=== PATIENT | male | born 1940 | race Caucasian/White ===

== ENCOUNTER 2019-06-27 17:13 | Inpatient (IN) ==
--- NOTE | 2019-06-27 18:13 | PROVIDER DOCUMENTATION ---
HPI-General Adult - General Chief Complaint: Altered Mental Status Stated Complaint: HALLUCINATION,CANCER Time Seen by Provider: 06/27/19 17:47 Source: patient Allergies/Adverse Reactions: Patient Allergies Allergy/AdvReac Type Severity Reaction Status Date / Time Penicillins Allergy Unknown shaking Verified 08/11/16 09:34 Home Medications: Home Medication List Medication Instructions Recorded Confirmed Last Taken Type Alprazolam [Alprazolam Xr] 0.5 mg PO 4XDAY PRN PRN 01/25/13 07/09/17 07/08/17 19:00 History Amiodarone HCl 200 mg PO DAILY 01/25/13 07/09/17 07/08/17 07:00 History Aspirin 81 mg PO DAILY 01/25/13 07/09/17 07/08/17 07:00 History Carvedilol 6.25 mg PO BID 01/25/13 07/09/17 07/08/17 19:00 History Esomeprazole [Nexium] 40 mg PO DAILY 01/25/13 07/09/17 07/08/17 07:00 History Furosemide [Lasix] 40 mg PO DAILY 01/25/13 07/09/17 07/08/17 07:00 History Pravastatin Sodium 20 mg PO QHS 01/25/13 07/09/17 07/08/17 19:00 History Ibrutinib [Imbruvica] 140 mg PO DAILY 08/09/16 07/09/17 07/08/17 19:00 History Eszopiclone 1 mg PO DAILY 07/09/17 07/09/17 07/08/17 19:00 History Gabapentin 300 mg PO DAILY 07/09/17 07/09/17 07/08/17 19:00 History Potassium Chloride E.r. [Klor-Con] 10 meq PO DAILY tablet 07/12/17 Unknown Rx - History of Present Illness -Gen Adult Nature of Presenting Problems: 78 yr old M hx of cancer with metastasis, presents with a several day hx of decreased appetite, as well as complaints of back pain, in addition to visual hallucinations. The pt is accompanied by family members, who report he has been seeing people who are not present, as well as complaining of back pain. Pt has lesions on his spine per recent CT, as well as recent news of lesions in the lung. He takes [place] at home, but has not had much relief with his pain medicine. Review of Systems - Adult - REVIEW OF SYSTEMS - ADULT ROS:: limited per condition (family provides the bulk of it) Constitutional: reports: no symptoms reported Eyes: reports: no symptoms reported Ears, Nose, Mouth & Throat: reports: no symptoms reported Cardiovascular: reports: no symptoms reported Respiratory: reports: no symptoms reported Gastrointestinal: reports: no symptoms reported Genitourinary: reports: no symptoms reported Musculoskeletal: reports: bone pain, back pain Integumentary: reports: no symptoms reported Neurological: reports: no symptoms reported Psychiatric: reports: other (reported hallucinations) Past History - Adult - PAST MEDICAL HISTORY-ADULT Review of Records: reports: Old Records Reviewed, Nursing Assessment Review Major Childhood Illnesses: reports: denies history Cardiovascular: reports: HTN, hyperlipidemia Respiratory: reports: denies history Gastrointestinal: reports: denies history Obstetrical/Gynecological: reports: denies history Genitourinary: reports: denies history Musculoskeletal: reports: denies history Neurological: reports: denies history Psychiatric: reports: anxiety, depression Endocrine/Immune: reports: Leukemia Other Conditions: reports: cataract/glaucoma, deaf/hard of hearing - PRIOR SURGERIES/PROCEDURES Surgical/Procedure History: reports: other (PAC placement, left ear sx) - PRIOR HOSPITALIZATIONS Prior Hospitalizations: reports: for other non-related - IMMUNIZATION STATUS Childhood Immunizations: See Nurse Assessment Flu Vaccine: See Nurse Assessment - FAMILY HISTORY Family History: reviewed, not pertinent - SOCIAL HISTORY Smoking: other (pt smokes though he will deny; family is unaware of how much because he hides the cigaettes) Physical Exam-General - PHYSICAL EXAM-ADULT Initial Vital Signs Reviewed: Yes - CONSTITUTIONAL General Appearance: alert, thin - EYES Eyes: PERRL/EOMI - HEAD, EARS, NOSE, MOUTH & THROAT HENMT: normocephalic/atraumatic, moist mucous membranes - RESPIRATORY Respiratory: lungs clear, normal breath sounds - CARDIOVASCULAR Cardiovascular: regular rate, rhythm - MUSCULOSKELETAL Back Exam: other (low back tenderness, paraspinal) - SKIN Integumentary: warm/dry - NEUROLOGIC Neurologic: other (UE strength 4/5). negative: facial droop - PSYCHIATRIC Psych/Mental Status: other (oriented to self, no place) Progress - PLAN OF CARE/RESULTS Progress/Plan/Lab Results: Vital Signs - 8 hr 06/27/19 17:25 Temperature 97.5 F L Pulse Rate 89 Respiratory Rate 17 Blood Pressure 149/72 O2 Sat by Pulse Oximetry 98 Orders Category Date Time Status CT HEAD W/O CONTRAST [CT] Stat Exams 06/27/19 18:[address] THORACIC SPINE W/O CONTRAST [CT] Stat Exams 06/27/19 18:11 Ordered CXR shows possible pneumonia, WBC also a little more elevated than usual; spoke with hospitalist who agrees to accept admission for additional management. Result Diagrams: 06/27/19 18:56 06/27/19 18:56 - EKG 1 Time of EKG reading by physician:: 18:48 EKG Read and Signed by:: Vika Pitts EKG Interpretation (*Must complete 3 of following elements*): Abnormal Rate: 69 Rhythm: sinus rhythm with 1st degree AV block [place]: normal QRS: RBB CA Interval: prolonged ST Wave: normal Prior EKG Comparison: unchanged from prior - XRAY 1 XRAY Study: Chest Impression: See EMR Report - CONSULTS/PCP/HOSPITALIST Notification #1 *Consult/PCP/Hospitalist*: Dr. Ramirez Time Discussed: 20:17 Consult Disposition: Admit Departure - Departure Date of Disposition Decision: 06/27/19 Time of Disposition Decision: 21:11 DIAGNOSIS: Pneumonia, Altered mental state Disposition: ADMITTED INPATIENT 09 Certified Medical Emergency: Emergent Condition: Fair Referrals and Follow-Ups: Pari Wilson MD [Primary Care Provider] - - Critical Care Note This patient required my direct & personal management of CC.: No Attestation - Physician/ ABIGAIL Attestation Patient care was provided by Advanced Practice Provider:: No The physician spent face to face time with patient:: Yes Advanced Practice Provider documentation review:: Supervising physician onsite and consulted in the evaluation and care of this patient. The physician did have a face to face encounter with the patient.
[2019-06-27] MEDS ORDERED: MORPHINE IV ONE (18:39)
[2019-06-27 19:08] LABS: BASO# 0.03 X1000 (0.0-0.2); BASO% 0.1 % (0.0-0.8); EOS# 0.03 X1000 (0.0-0.7); EOS% 0.1 % (0.0-10.0); HEMATOCRIT 49.9 % (42.0-52.0); HEMOGLOBIN 16.5 g/dL (14.0-18.0); LYMPH# 5.87 X1000 (1.2-3.4); LYMPH% 28.4 % (20.5-51.1); MCH 28.8 PG (27-31); MCHC 33.1 g/dL (33-37); MCV 87.2 FL (81-99); MONO# 1.28 X1000 (0.11-0.59); MONO% 6.2 % (1.7-9.3); MPV 11.1 FL (7.4-10.4); NEUT# 13.23 X1000 (1.4-6.5); NEUT% 64.2 % (42.2-75.2); PLT 168 X1000 (130-400); RBC 5.72 XMIL (4.7-6.1); RDW 15.6 % (11.5-14.5); WBC 20.64 X1000 (4.8-10.8)
--- NOTE | 2019-06-27 19:42 | Diag Imaging Result Doc PS360 ---
EXAM: CT HEAD W/O CONTRAST 06/27/2019 HISTORY: Altered Mental Status TECHNIQUE: This exam was performed using automated exposure control, adjustment of mA or kV according to patient size, and/or use of iterative reconstruction technique. COMMENT: There is mild generalized cerebral atrophy and enlargement of the ventricular system particularly the third and lateral ventricles. This appearance has not changed significantly since 07/09/2017. There is no evidence of mass effect, bleed, or abnormal extra-axial fluid collection. The visualized paranasal sinuses are clear. The calvarium is intact. IMPRESSION: No evidence of acute intracranial disease. Electronically signed by Marcellus Armstrong 06/27/2019 7:39 PM
--- NOTE | 2019-06-27 19:44 | Diag Imaging Result Doc PS360 ---
EXAM: CHEST-2 VIEWS 06/27/2019 HISTORY: altered mental status, weakness TECHNIQUE: AP and lateral chest COMMENT: There is a Port-A-Cath on the right with its tip in the right atrium. The inspiration is less optimal than on 07/09/2017. There is some opacity seen posteriorly probably on the left side on the lateral view which is not as well demonstrated on the AP view. IMPRESSION: Left lower lobe pneumonia. Electronically signed by Marcellus Armstrong 06/27/2019 7:42 PM
[2019-06-27 20:01] LABS: AGAP 16; ALB/GLOB RATIO 1.5; ALBUMIN 3.5 g/dL (3.5-5.0); ALKALINE PHOSPHATASE 175 U/L (32-122); BUN 25 mg/dL (8-22); CALCIUM 9.3 mg/dL (8.8-10.2); CHLORIDE 96 mmol/L (98-107); COSMO 280; CREATININE 0.9 mg/dL (0.7-1.2); ESTIMATED GFR > 60; GLUCOSE 96 mg/dL (70-104); GOT 25 U/L (10-34); GPT 15 U/L (10-44); MAGNESIUM 2.1 mg/dL (1.5-2.7); POTASSIUM 3.4 mmol/L (3.5-5.1); SODIUM 138 mmol/L (136-145); TCO2 26 mmol/L (25-35); TOTAL PROTEIN 5.9 g/dL (6.3-8.3)
[2019-06-27] MEDS ORDERED: KLOR-CON PO ONE (21:34)
--- NOTE | 2019-06-27 22:52 | HISTORY AND PHYSICAL ---
CHIEF COMPLAINT: Altered mental status and pain. HISTORY OF PRESENT ILLNESS: This is an unfortunate 78-year-old male with a history of CLL who was recently diagnosed with lung cancer with metastases around 2 weeks ago. He presents after having several days of decreased appetite, per the daughter at the bedside. He has also had complaints of a lot of back pain and visual hallucinations. Apparently, he has been seeing people and talking to them who are not present as well as, again, a lot of back pain. He does have lesions to the spine per recent CT. He was given [place] but has not had much relief with this. He has other past medical history that includes dementia, hyperlipidemia and depression. I believe he was supposed to go for radiation this last Sunday but was unable to. At any rate, he will be admitted for a left lower lobe pneumonia and treated for this as well as pain control. He will be placed on the medical floor close to the nursing station for further evaluation and treatment. PAST MEDICAL HISTORY: See HPI. PREVIOUS SURGICAL HISTORY: Left ear surgery, scalp lesion excision, Port-A-Cath placement on right chest. FAMILY HISTORY: Mother had cancer. However, the daughter was not able to tell me what type of cancer. SOCIAL HISTORY: He lives in a mobile home behind his daughter's house. Believe he continues to smoke. He had 50-plus pack years. No alcohol or illicit drugs. ALLERGIES: Penicillin. HOME MEDICATIONS: A list of home medications has not been reconciled. An order was placed for Nursing to reconcile home medications. REVIEW OF SYSTEMS: Fourteen-point review of systems was attempted. The patient is very hard of hearing and he is oriented only to person. He does complain of having back pain but he denies any other complaint. The family has not told him that he has cancer. Other pertinent positives are listed above in the HPI. PHYSICAL EXAMINATION: VITAL SIGNS: Temperature 97.5, pulse 89, respirations 17, blood pressure 149/72, oxygen saturation 98% on room air. GENERAL: Pleasantly confused 78-year-old male, chronically ill appearing, lying in the ER stretcher, oriented only to person, very hard of hearing. HEENT: Head is atraumatic, normocephalic. Pupils equal, round, reactive to light. Extraocular eye movement is intact. Sclerae are anicteric. Conjunctiva is pink. Oral mucosa is dry. NECK: Supple. No JVD. No thyromegaly. Trachea is midline. CARDIAC: S1, S2 appreciated. No murmurs, gallops, rubs. LUNGS: Clear to auscultation bilaterally. No rhonchi, wheezes or rales. Decreased bilateral bases. ABDOMEN: Soft, nondistended, nontender. Bowel sounds present all 4 quadrants, normoactive. No pulsatile mass. No organomegaly. EXTREMITIES: No clubbing, cyanosis or edema. Two-plus pedal pulses. MUSCULOSKELETAL: 3/5 strength upper and lower extremities. All range of motion seems to be decreased. NEUROLOGICAL: Oriented to person. Does follow commands. Very hard of hearing. No focal motor deficits are noted. Cranial nerves 2 through 12 appear to be grossly intact. SKIN: Appears to be warm, dry and intact. DIAGNOSTIC DATA: Chest x-ray shows a left lower lobe infiltrate. CT of the head: No evidence of acute intracranial process. LABORATORY DATA: WBC 20.64. Hemoglobin 16.5. Hematocrit 49.9. Platelet count 168. Sodium 138. Potassium 3.4. Chloride 96. Carbon dioxide 26. BUN 25. Creatinine 0.9. Glucose 96. ASSESSMENT AND PLAN: 1. Left lower lobe pneumonia. We will give Levaquin and Rocephin. Blood cultures and sputum cultures are pending. 2. 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 We will consult Dr. Kristina Adkins. We will give morphine as needed for pain, Zofran as needed for nausea. I do not believe code status has been gone over with the patient. Again, he was altered tonight. We will defer this to the primary team and Oncology. However, I do think this would be a worthwhile conversation to have. 3. Leukocytosis. Patient has CLL with chronic leukocytosis. This is as noted chronically elevated. 4. Hypokalemia. We will treat and recheck. We will resume patient's home medications once they have been reconciled. Nursing was working with the daughter to try to get a list of home medications. Further recommendations per patient clinical course. Dictated by ROBERTO Snyder for Curtis Ramirez MD I have performed a face to face diagnostic evaluation. Labs/ Xrays- reviewed. Exam- Chest- rales, CV- regular. A/P- Pneumonia- Admit, check blood cultures, IV ABX. Dr. Ramirez. cc: ROBERTO Snyder MD MTDD
[2019-06-28 00:36] LABS: URINE SOURCE CATH
[2019-06-28 00:49] LABS: BILIRUBIN URINE NEGATIVE (NEGATIVE); BLOOD URINE MODERATE (NEGATIVE); COLOR YELLOW; GLUCOSE URINE NEGATIVE (NEGATIVE); KETONE URINE 20 mg/dL (NEGATIVE); LEUKOCYTES URINE TRACE (NEGATIVE); NITRITE URINE POSITIVE (NEGATIVE); PROTEIN URINE 30 mg/dL (NEGATIVE); SP GRAVITY URINE 1.026; TURBIDITY URINE CLEAR (CLEAR); UROBILINOGEN URINE NORMAL (NORMAL)
[2019-06-28 00:50] LABS: UR EPITHELIAL CELLS <10 /HPF (<10); URINE BACTERIA NEGATIVE /HPF; URINE WBC <10 /HPF (<10)
[2019-06-28] MEDS: NS 1,000 ML IV SCH ×2 (00:53→15:06)
[2019-06-28] MEDS: ROCEPHIN 1 GM in NS 50 ML IV SCH ×2 (00:56→23:16)
[2019-06-28] MEDS: MORPHINE IV PRN ×5 (00:57→23:16)
[2019-06-28] MEDS: DUONEB (A & A) INH SCH ×5 (02:07→21:40)
[2019-06-28] MEDS: LEVAQUIN 750 MG/D5W 750 MG/150 ML IVPB IV SCH (03:18)
[2019-06-28 07:27] LABS: BASO# 0.02 X1000 (0.0-0.2); BASO% 0.1 % (0.0-0.8); EOS# 0.03 X1000 (0.0-0.7); EOS% 0.2 % (0.0-10.0); HEMATOCRIT 47.3 % (42.0-52.0); HEMOGLOBIN 15.4 g/dL (14.0-18.0); IMM GRAN# 0.21 X1000 (0.0-0.04); IMM GRAN% 1.2 % (0.0-0.5); LYMPH# 4.94 X1000 (1.2-3.4); LYMPH% 27.4 % (20.5-51.1); MCH 28.7 PG (27-31); MCHC 32.6 g/dL (33-37); MCV 88.1 FL (81-99); MONO# 1.33 X1000 (0.11-0.59); MONO% 7.4 % (1.7-9.3); MPV 11.6 FL (7.4-10.4); NEUT# 11.47 X1000 (1.4-6.5); NEUT% 63.7 % (42.2-75.2); PLT 152 X1000 (130-400); RBC 5.37 XMIL (4.7-6.1); RDW 15.6 % (11.5-14.5)
[2019-06-28 07:52] LABS: AGAP 12; BUN 19 mg/dL (8-22); CALCIUM 8.3 mg/dL (8.8-10.2); CHLORIDE 102 mmol/L (98-107); COSMO 281; CREATININE 0.7 mg/dL (0.7-1.2); ESTIMATED GFR > 60; GLUCOSE 80 mg/dL (70-104); SODIUM 140 mmol/L (136-145); TCO2 26 mmol/L (25-35)
[2019-06-28] MEDS: LOVENOX SUBQ SCH (08:21)
--- NOTE | 2019-06-28 12:19 | PROGRESS NOTE ---
DATE: 06/28/2019 SUBJECTIVE: Patient notes that he is feeling better. States he is still having some coughing, congestion, and some occasional shortness of breath. Denies any fevers. PHYSICAL EXAMINATION: Vital Signs: Temperature 97.6, pulse 72, respiratory rate 18, and BP 138/62. General: Patient is in no current respiratory distress. HEENT: Normocephalic. Neck: Supple. Cardiovascular: Regular rate. Chest: Clear. Abdomen: Soft. Extremities: Moves all extremities. ASSESSMENT: 1. Leukocytosis. White count is slightly improved down from 20 to 18. 2. Hypokalemia. 3. Recently diagnosed with lung cancer with metastases. PLAN: We will continue patient in the hospital. Currently on Levaquin and Rocephin. Continue to follow. Breathing treatments, oxygen and antibiotics. cc: Dionicio Lazo MD
[2019-06-28] MEDS ORDERED: LANOXIN IV ONE (20:04)
[2019-06-28] MEDS ORDERED: LOPRESSOR IV ONE (20:04)
[2019-06-29] MEDS: LEVAQUIN 750 MG/D5W 750 MG/150 ML IVPB IV SCH (02:24)
[2019-06-29] MEDS: DUONEB (A & A) INH SCH ×4 (03:12→21:19)
[2019-06-29] MEDS: MORPHINE IV PRN ×3 (04:47→16:52)
[2019-06-29] MEDS: NS 1,000 ML IV SCH ×3 (04:47→18:16)
--- NOTE | 2019-06-29 05:12 | EKG Report ---
Test Performed on : 06/28/2019 7:28:37 PM Test Reason : a fib Blood Pressure : / mmHG Vent. Rate : 115 BPM Atrial Rate : 267 BPM P-R Int : 000 ms QRS Dur : 112 ms QT Int : 346 ms P-R-T Axes : 000 -73 065 degrees QTc Int : 478 ms Atrial fibrillation. with rapid ventricular response. Right bundle branch block Left anterior fascicular block Bifascicular block Abnormal ECG When compared with ECG of 27-JUN-2019 18:47, (Unconfirmed) Atrial fibrillation. has replaced Sinus rhythm. Vent. rate has increased BY 46 BPM Non-specific change in ST segment in Anterior leads Confirmed by Yaakov GARCÍA, Moises Skaggs ([id number]) on 06/29/2019 7:27:06 AM
[2019-06-29] MEDS ORDERED: LANOXIN IV ONE (08:39)
[2019-06-29] MEDS ORDERED: LOPRESSOR IV ONE (08:40)
[2019-06-29] MEDS: LOVENOX SUBQ SCH (09:06)
[2019-06-29] MEDS: LANOXIN PO SCH (09:06)
--- NOTE | 2019-06-29 10:08 | PROGRESS NOTE ---
DATE: 06/29/2019 SUBJECTIVE: Mr. Hobbs was eating breakfast, seemed to be comfortable, no complaints. He is a patient of Dr. Wilson. He presented on 06/27/2019 with altered mental status. A 78-year-old with history of CLL, who was recently diagnosed with lung cancer, metastatic, around 2 weeks ago. He presents after having several days of decreased appetite. Per his daughter at the bedside, he also had complaints of back pain and visual hallucinations. Apparently, he has been seeing people and talking to them. He has had a lot of back pain. He does have some lesions on the spine per recent CT scan, suspect metastatic disease. He was given some [place], but had not had much relief. He has a history of dementia, hyperlipidemia, depression, and I think he was supposed to go for radiation last Sunday, but unable to go, so admitting him. We found a left lower lobe pneumonia, and admitted to the hospital. He feels better, he says, this morning. He is oriented to person. When reminded, he is in the hospital, he is aware. Otherwise, I do not think he is oriented to time and place. OBJECTIVE: Vital Signs: Temperature 98.2 degrees, pulse 80, respirations 22, blood pressure 141/76. HEENT: Pupils are equal and round. Lungs: Clear in all lung childress. Cardiovascular: Regular rhythm and rate without murmur or S3. ASSESSMENT AND PLAN: 1. Leukocytosis, which is improved. 2. Treating him for pneumonia. He has history of recently diagnosed lung cancer. 3. Recent diagnosis of lung cancer and appears to have metastatic lesions to the spine. I think they were planning on beginning some radiation treatment. His oncologist is Dr. Adkins, I believe. REVIEW OF ORDERS: We have on Levaquin 750 mg IV every 24 hours, ceftriaxone 1 gram every 24 hours. He did have some episodes of atrial fibrillation through the night and also this morning, so last night he got a dose of digoxin 250 mcg IV, and then 5 of metoprolol, and repeated that this morning. He appears comfortable. I suspect he has underlying history of paroxysmal atrial fibrillation. His white count had gone down to 18,000 from 20,000. We will repeat his white count and electrolytes again in the morning. cc: Donny Samson MD
[2019-06-29] MEDS: TYLENOL PO PRN (20:26)
[2019-06-29] MEDS: ROCEPHIN 1 GM in NS 50 ML IV SCH (23:56)
[2019-06-30] MEDS: LEVAQUIN 750 MG/D5W 750 MG/150 ML IVPB IV SCH (02:27)
[2019-06-30] MEDS: DUONEB (A & A) INH SCH ×4 (03:10→22:55)
[2019-06-30] MEDS: NS 1,000 ML IV SCH ×2 (04:51→17:50)
[2019-06-30] MEDS: MORPHINE IV PRN ×3 (04:51→14:20)
[2019-06-30 07:29] LABS: BASO# 0.02 X1000 (0.0-0.2); BASO% 0.1 % (0.0-0.8); EOS# 0.07 X1000 (0.0-0.7); EOS% 0.5 % (0.0-10.0); HEMATOCRIT 43.9 % (42.0-52.0); HEMOGLOBIN 14.6 g/dL (14.0-18.0); IMM GRAN# 0.45 X1000 (0.0-0.04); IMM GRAN% 3.1 % (0.0-0.5); LYMPH# 4.36 X1000 (1.2-3.4); LYMPH% 30.4 % (20.5-51.1); MCHC 33.3 g/dL (33-37); MCV 87.3 FL (81-99); MONO# 1.01 X1000 (0.11-0.59); MPV 11.6 FL (7.4-10.4); NEUT# 8.43 X1000 (1.4-6.5); NEUT% 58.9 % (42.2-75.2); PLT 151 X1000 (130-400); RBC 5.03 XMIL (4.7-6.1); RDW 15.2 % (11.5-14.5); WBC 14.34 X1000 (4.8-10.8)
[2019-06-30 07:52] LABS: AGAP 14; ALB/GLOB RATIO 1.1; ALBUMIN 2.6 g/dL (3.5-5.0); ALKALINE PHOSPHATASE 128 U/L (32-122); BUN 9 mg/dL (8-22); CALCIUM 7.5 mg/dL (8.8-10.2); CHLORIDE 100 mmol/L (98-107); COSMO 276; CREATININE 0.7 mg/dL (0.7-1.2); ESTIMATED GFR > 60; GLUCOSE 87 mg/dL (70-104); GOT 19 U/L (10-34); GPT 12 U/L (10-44); MAGNESIUM 1.6 mg/dL (1.5-2.7); POTASSIUM 3.1 mmol/L (3.5-5.1); SODIUM 139 mmol/L (136-145); TCO2 25 mmol/L (25-35); TOTAL BILIRUBIN 0.66 mg/dL (0.20-1.00); TOTAL PROTEIN 4.9 g/dL (6.3-8.3)
--- NOTE | 2019-06-30 08:10 | EKG Report ---
Test Performed on : 06/27/2019 6:47:10 PM Test Reason : ED. NO EKG ORDER FOR MUSE Blood Pressure : / mmHG Vent. Rate : 069 BPM Atrial Rate : 069 BPM P-R Int : 260 ms QRS Dur : 112 ms QT Int : 432 ms P-R-T Axes : 061 -71 045 degrees QTc Int : 462 ms Sinus rhythm. with 1st degree AV block. Right bundle branch block Left anterior fascicular block Bifascicular block Septal infarct , age undetermined Abnormal ECG When compared with ECG of 09-JUL-2017 10:52, No significant change was found Unconfirmed Result
--- NOTE | 2019-06-30 08:45 | Diag Imaging Result Doc PS360 ---
CHEST-PORTABLE - 06/30/2019 INDICATION: pneumonia COMPARISON: 06/27/2019 FINDINGS: Stable right chest port in good position. There is some worsening infiltrate or atelectasis in the left lower lobe. There is some pulmonary vascular congestion and perhaps some interstitial pulmonary edema with indistinctness of the vascularity. No pneumothorax or large pleural effusion. Heart size is top normal. IMPRESSION: Worsening left lower lobe infiltrate or atelectasis. Faint bilateral infiltrates which may suggest interstitial pulmonary edema. Electronically signed by Freddy Chu 06/30/2019 8:42 AM
[2019-06-30] MEDS: LOVENOX SUBQ SCH (08:46)
[2019-06-30] MEDS: LANOXIN PO SCH (08:46)
[2019-06-30] MEDS: TYLENOL PO PRN (14:28)
[2019-06-30] MEDS: MIRALAX PO SCH (16:10)
--- NOTE | 2019-06-30 17:27 | PROGRESS NOTE ---
DATE: 06/30/2019 SUBJECTIVE: Mr. Hobbs says that he just does not have much appetite, not eating much. His breathing he thinks is a little better. He is very weak. He wants to still try and go home. He wants to try and get home health. OBJECTIVE: Vital signs: Temp is 97.7 degrees, pulse 89, respirations 16, blood pressure 150/74. HEENT: Pupils are equal and round. Lungs: Clear in all lung childress. Cardiovascular: Regular rhythm and rate without murmur or S3. Abdomen: Soft. Skin: Warm, dry. IMAGING: Chest x-ray from this morning, worsening left lower lobe infiltrate and atelectasis and bilateral infiltrates; they suggest interstitial pulmonary edema. ASSESSMENT AND PLAN: 1. Leukocytosis. White count has come down to 14,000, that is encouraging. X-ray looks a little worse, but clinically he seems to be doing a little better. 2. Treating him for pneumonia. He has underlying lung cancer with metastatic lesions to the spine. He is planning on beginning some radiation treatment. 3. Nutrition. His p.o. intake is poor. Encouraging p.o. intake. 4. In looking at his orders. He is on Levaquin 750 mg IV daily, normal saline at 70 mL an hour, MiraLAX 17 g daily, ceftriaxone 1 g IV q.24 hours, digoxin 250 mcg, I think we are giving that p.o. daily. So, we are trying to increase his p.o. intake. Discussed with Dr. Adkins what the plan of treatment would be. LABS: Review of his labs from today. White count 14,340, hematocrit is 43, platelet count 151,000. Electrolytes look good. Sodium 139, potassium 3.1, chloride 100, BUN 9, creatinine 0.7. I am going to put him on a daily potassium and see if that will help. I will give him liquid so he can swallow good. cc: Donny Samson MD
--- NOTE | 2019-06-30 19:47 | HEMO/ONC CONSULTATION ---
DATE: 06/30/2019 CONSULTATION REQUESTED BY: Hospitalist service. CONSULTATION IS FOR: CLL/metastatic lung cancer, patient known. HISTORY OF PRESENT ILLNESS: Mr. Hobbs is a 78-year-old male who is known to us as we have been treating him for several years now for CLL who was recently diagnosed with metastatic lung cancer about 2 weeks ago. He has presented to [facility] complaining of increased cough with shortness of breath. He also had decreased appetite and lots of back pain. Of note, the patient does have compression fractures and bony metastasis to the spine. We have set the patient up to have palliative radiation therapy with Dr. Killian as an outpatient. He was worked up in the hospital and found to have left lower lobe pneumonia. He is now receiving IV antibiotics. The patient reports that he is feeling better at this time. PAST SURGICAL HISTORY: 1. Left ear surgery. 2. Scalp lesion excision for previous skin cancer. 3. Port-A-Cath placement. PAST MEDICAL HISTORY: 1. CLL, most recently on Imbruvica and well managed. 2. Is newly diagnosed metastatic lung cancer. Patient is not a candidate for treatment. We have recommended hospice. 3. Compression fractures related to lytic lesions from his lung cancer. We have set the patient up to receive palliative radiation therapy. 4. Anxiety, depression. 5. Insomnia. SOCIAL HISTORY: The patient lives in a mobile home behind his daughter's house. Daughter is involved and brings him every appointment. He continues to smoke. He denies any alcohol or illicit drug use. FAMILY HISTORY: His mother did have a unknown cancer. Otherwise no other family history of cancer. REVIEW OF SYSTEMS: Twelve point review of system has been completed negative except for expressed in HPI. PHYSICAL EXAMINATION: Vital Signs: Temperature 97.7 degrees, heart rate 89, respirations 16, blood pressure 150/74, O2 saturation 99% on room air. General: This is an elderly male lying in hospital bed. There is no one at bedside. He is extremely hard of hearing. HEENT: Head normocephalic, atraumatic. He has glasses in place. Pupils equal, round, reactive. Mucosa is normal. Cardiovascular: S1, S2 heard. Respiratory: Chest clear, normal respiratory effort. Gastrointestinal: Abdomen soft, positive bowel sounds. Musculoskeletal: No bony abnormalities. Skin: No rash. Neurologic: Patient is alert. LABS AND STUDIES: White blood cells are 14.34 today, hemoglobin 14.6, platelet count 151,000, sodium 139, potassium 3.1, chloride 100, CO2 25, BUN 9, creatinine 0.7, glucose 87. ASSESSMENT/PLAN: 1. Chronic lymphocytic leukemia. Most recently he was on Imbruvica. That is currently being held. White count overall stable at this time. Continue to hold Imbruvica. 2. Recently diagnosed metastatic lung cancer with metastasis to the bone. We have not recommended treatment. This patient is not a candidate for chemotherapy or radiation for his lung cancer. We have recommended hospice previously. We again recommend hospice at this time. 3. Bony metastasis to the spine causing increased pain. Patient is a candidate possibly for palliative radiation to the spine. He was seeing Dr. Killian to hopefully get this arranged. Continue current pain regimen while he is in the hospital. 4. Pneumonia. Continue current IV antibiotics per the primary team. Patient reports that he started to feel better at this time. Thank you for consulting us on Mr. Hobbs while he is here at [facility]. We will continue follow along adjust our treatment plan per his hospital course. Dictated by MIGUEL London for Kristina Adkins MD cc: Kristina Adkins MD I have seen and examined the patient and the above note reflects my history, physical, assessment and plan. Kristina BINGHAM
[2019-06-30] MEDS: KLOR-CON PO SCH (22:48)
[2019-07-01] MEDS: ROCEPHIN 1 GM in NS 50 ML IV SCH (00:43)
[2019-07-01] MEDS: TYLENOL PO PRN ×2 (02:16→21:50)
[2019-07-01] MEDS: LEVAQUIN 750 MG/D5W 750 MG/150 ML IVPB IV SCH (02:16)
[2019-07-01] MEDS: DUONEB (A & A) INH SCH ×4 (03:44→22:07)
--- NOTE | 2019-07-01 07:21 | Diag Imaging Result Doc PS360 ---
EXAM: FLAT/UPRIGHT ABD/1 VIEW CHEST 07/01/2019 HISTORY: constipation/pneumonia TECHNIQUE: AP portable at 0659 COMMENT: There is hazy interstitial opacity bilaterally particularly in the right lower lobe. The heart size and pulmonary vascularity appear to be within normal limits. There may be small pleural effusions bilaterally. Compared to 06/30/2019 the obscuration of the hemidiaphragms is somewhat worse but otherwise are has been no appreciable change. IMPRESSION: Pulmonary edema and small pleural effusions. Electronically signed by Marcellus Armstrong 07/01/2019 7:19 AM
[2019-07-01 07:55] LABS: BASO# 0.03 X1000 (0.0-0.2); BASO% 0.2 % (0.0-0.8); EOS# 0.15 X1000 (0.0-0.7); HEMOGLOBIN 15.4 g/dL (14.0-18.0); IMM GRAN# 0.58 X1000 (0.0-0.04); LYMPH# 4.04 X1000 (1.2-3.4); LYMPH% 27.9 % (20.5-51.1); MCH 28.9 PG (27-31); MCHC 33.5 g/dL (33-37); MCV 86.3 FL (81-99); MONO# 0.93 X1000 (0.11-0.59); MONO% 6.4 % (1.7-9.3); MPV 10.8 FL (7.4-10.4); NEUT# 8.76 X1000 (1.4-6.5); NEUT% 60.5 % (42.2-75.2); PLT 166 X1000 (130-400); RBC 5.33 XMIL (4.7-6.1); RDW 15.3 % (11.5-14.5); WBC 14.49 X1000 (4.8-10.8)
[2019-07-01 08:36] LABS: LARGE PLATELETS 2+; LYMPHS 8 % (21-51); MONO 8 % (1-9); SEGS 74 % (42-75)
[2019-07-01 09:00] LABS: AGAP 15; ALBUMIN 2.9 g/dL (3.5-5.0); BUN 10 mg/dL (8-22); CALCIUM 8.5 mg/dL (8.8-10.2); CHLORIDE 97 mmol/L (98-107); COSMO 269; CREATININE 0.7 mg/dL (0.7-1.2); ESTIMATED GFR > 60; GLUCOSE 94 mg/dL (70-104); MAGNESIUM 1.6 mg/dL (1.5-2.7); PHOSPHORUS 2.7 mg/dL (2.7-4.5); POTASSIUM 3.1 mmol/L (3.5-5.1); SODIUM 135 mmol/L (136-145); TCO2 23 mmol/L (25-35)
[2019-07-01] MEDS: KLOR-CON PO SCH (09:22)
[2019-07-01] MEDS: LOVENOX SUBQ SCH (09:22)
[2019-07-01] MEDS: LANOXIN PO SCH (09:22)
[2019-07-01] MEDS: MIRALAX PO SCH (09:22)
[2019-07-01] MEDS: COLACE PO SCH ×2 (09:25→21:48)
[2019-07-01] MEDS: NS 1,000 ML IV SCH (09:25)
--- NOTE | 2019-07-01 14:04 | INFECTIOUS DISEASE CONSULT REP ---
DATE: 07/01/2019 CONCLUSION: Patient has a left lower lobe pneumonia which is increasing in size. PRESENT ILLNESS: The patient was unable provide a history. The patient recently had been diagnosed with lung cancer with metastatic disease. He started having anorexia, increased back pain and visual hallucinations. RECOMMENDATIONS: I have discontinued Rocephin and Levaquin and I placed the patient on a combination of Zyvox and cefepime. DISCUSSION: The patient is extremely hard of hearing and he was unable to give me a history and I was unable to do a review of systems with it. PAST SURGICAL HISTORY: The patient has had left ear surgery, excision of lesions on his scalp, and placement of a right Port-A-Cath. PREVIOUS MEDICAL HISTORY: Positive for lung cancer with metastatic disease, chronic lymphocytic leukemia, and chronic obstructive pulmonary disease. The patient also is a cigarette smoker. Hyperlipidemia and gastroesophageal reflux disease. FAMILY HISTORY: Positive for cancer. SOCIAL HISTORY: The patient lives in a mobile home with his daughter. He smokes cigarettes. He does not drink alcoholic beverages or abuse drugs. ALLERGIES: The patient is allergic to penicillin. The reaction was shaking. HOME MEDICATIONS: Include alprazolam, amiodarone, carvedilol, Nexium, furosemide, gabapentin, Imbruvica, and pravastatin. STUDIES: The patient's studies thus far show a CBC with a white count of 14,490, hemoglobin 15.4 and platelet count 166,000. The patient's blood cultures are pending. Creatinine is 0.7. GFR is greater than 60. Chest x-ray shows an increasing left lower lobe pneumonia. CT scan of the head shows no acute disease. Thank you for the consult. cc: [facility]
[2019-07-01] MEDS ORDERED: MAGNESIUM SULFATE 2 GM/S.W.I. 2 GM/50 ML IVPB IV ONE (14:20)
[2019-07-01] MEDS ORDERED: KLOR-CON PO ONE (14:20)
[2019-07-01] MEDS: MAXIPIME 1 GM in NS 50 ML IV SCH ×2 (15:00→21:47)
[2019-07-01] MEDS: ZYVOX PO SCH (17:06)
--- NOTE | 2019-07-01 22:16 | PROGRESS NOTE ---
DATE: 07/01/2019 SUBJECTIVE: The patient is resting comfortably in bed. He is very hard of hearing. His family is present at the bedside. He complains of back pain whenever he moves. OBJECTIVE: Vital Signs: Temperature 97.6 degrees, blood pressure 147/62, heart rate 80, respirations 18, O2 saturation 97% on room air. General: This is a thin, emaciated male lying in bed in no acute distress. Heart: S1, S2 normal. Tachycardic. Lungs: Equal air entry bilaterally. No wheezing. No rales. Abdomen: Positive bowel sounds. Soft, nontender, nondistended. Extremities: No edema. No cyanosis. Neurologic: The patient is alert, but confused. LABS: White blood cell count 14, hemoglobin 15, hematocrit 46, platelets 166,000. Sodium 135, potassium 3.1, chloride 97, CO2 23, magnesium 1.6. ASSESSMENT AND PLAN: 1. Pneumonia. The patient is on broad-spectrum antibiotics and bronchodilator therapy. We will continue to monitor closely. 2. Metastatic lung cancer. Aware. The patient is not a candidate for chemotherapy as per the oncologist. We will consult with Palliative Care to assist with goals of care. 3. Chronic lymphocytic leukemia. Aware. 4. Constipation. We will start the patient on laxative therapy. 5. Hypokalemia. We will replace the patient's potassium. 6. Hypomagnesemia. Will replace the patient's magnesium. 7. Severe protein-calorie malnutrition. We will continue with Ensure with each meal and will also add Marinol. DISPOSITION: Given the patient's terminal diagnosis, we will consult with Palliative Care to assist with goals of care. cc: Bettina Barton MD [facility]
[2019-07-02] MEDS: NS 1,000 ML IV SCH ×2 (00:25→18:05)
[2019-07-02] MEDS: MS CONTIN PO SCH ×3 (00:25→21:07)
[2019-07-02] MEDS: MORPHINE IV PRN (04:33)
[2019-07-02] MEDS: DUONEB (A & A) INH SCH ×4 (04:39→21:15)
[2019-07-02] MEDS: MAXIPIME 1 GM in NS 50 ML IV SCH ×2 (05:35→14:37)
[2019-07-02] MEDS: ZYVOX PO SCH ×2 (05:36→18:05)
[2019-07-02 07:25] LABS: BASO# 0.03 X1000 (0.0-0.2); BASO% 0.2 % (0.0-0.8); EOS# 0.09 X1000 (0.0-0.7); EOS% 0.6 % (0.0-10.0); HEMATOCRIT 43.7 % (42.0-52.0); HEMOGLOBIN 14.4 g/dL (14.0-18.0); IMM GRAN# 0.57 X1000 (0.0-0.04); IMM GRAN% 3.6 % (0.0-0.5); LYMPH# 4.45 X1000 (1.2-3.4); LYMPH% 28.4 % (20.5-51.1); MCH 28.5 PG (27-31); MCV 86.4 FL (81-99); MPV 11.2 FL (7.4-10.4); NEUT# 9.45 X1000 (1.4-6.5); NEUT% 60.2 % (42.2-75.2); PLT 156 X1000 (130-400); RBC 5.06 XMIL (4.7-6.1); RDW 15.4 % (11.5-14.5); WBC 15.69 X1000 (4.8-10.8)
[2019-07-02 08:01] LABS: AGAP 12; ALBUMIN 2.6 g/dL (3.5-5.0); BUN 12 mg/dL (8-22); CALCIUM 7.5 mg/dL (8.8-10.2); CHLORIDE 103 mmol/L (98-107); COSMO 277; CREATININE 0.7 mg/dL (0.7-1.2); ESTIMATED GFR > 60; GLUCOSE 98 mg/dL (70-104); PHOSPHORUS 2.9 mg/dL (2.7-4.5); POTASSIUM 3.4 mmol/L (3.5-5.1); SODIUM 139 mmol/L (136-145); TCO2 24 mmol/L (25-35)
[2019-07-02] MEDS: LANOXIN PO SCH (09:15)
[2019-07-02] MEDS: COLACE PO SCH ×2 (09:15→21:09)
[2019-07-02] MEDS: MARINOL PO SCH (09:16)
[2019-07-02] MEDS: MIRALAX PO SCH (09:16)
[2019-07-02] MEDS: LOVENOX SUBQ SCH (09:16)
[2019-07-02] MEDS ORDERED: GAMUNEX-C 10% IV SCH (14:30)
[2019-07-02] MEDS: KLOR-CON PO ONE ×2 (14:40→15:50)
--- NOTE | 2019-07-02 14:50 | INFECTIOUS DISEASE PROGRESS NO ---
DATE: 07/02/2019 PRESENT ILLNESS: Mr. Hobbs is being treated for pneumonia. There is also an underlying CLL with an associated immunoglobulin deficiency. MEDICATIONS: Yesterday he was started on Zyvox 600 mg by mouth every 12 hours and cefepime 1 g IV every 8 hours. PHYSICAL EXAMINATION: Vital Signs: Temperature is 98.9 degrees, pulse rate 74, respiratory rate 14. Blood pressure 168/73, O2 saturation is 93% on room air. General: This is a chronically ill- appearing, elderly gentleman. He is lying in bed, extremely hard of hearing, currently in no distress, states he is feeling better today. HEENT: Atraumatic, normocephalic. Oral mucous membranes are pink and moist. Conjunctivae are pink. Neck: Supple. Trachea is midline. Cardiovascular: Heart rate and rhythm are regular. Normal sinus rhythm with a first degree heart block on the monitor. Respiratory: Lung sounds are clear in the upper lobes. Diminished in the mid and bases. Abdomen: Soft, flat, and nontender to palpation. Bowel sounds are active. Integumentary: Skin is warm, dry, and intact. There is a Port-A-Cath in place to the right chest. That site is without edema, erythema, or drainage. Neurologic: He is awake, alert, and appropriate. Able to move all extremities in the bed with weakness noted, more so to the right hand due to previous fracture. LABORATORY AND X-RAY: Today his white count is 15.69, hemoglobin 14.4, platelet count 156,000. Creatinine is 0.7, estimated GFR is greater than 60. His procalcitonin shows 0.37 and immunoglobulins show IgG of 274 and an IgA of 51. Blood cultures have been drawn and are preliminary. No imaging reports today. ASSESSMENT AND PLAN: Mr. Hobbs is being treated for pneumonia and has a profound immunoglobulin deficiency. After speaking with Dr. Barton, we will plan on providing him with IVIG replacement with 20 g to be given today and 20 g tomorrow. We will also continue the Zyvox and cefepime as ordered. These plans have been discussed with and recommended by Dr. Weir. COMORBIDITIES: For Mr. Hobbs include metastatic lung cancer, cigarette smoking with COPD, chronic lymphocytic leukemia with immunoglobulin deficiency and gastroesophageal reflux disease. Dictated by ROBERTO Preciado for Deon Weir MD cc: Deon Weir MD MTDD
[2019-07-02] MEDS ORDERED: KLOR-CON PO ONE (15:00)
--- NOTE | 2019-07-02 15:22 | HEMO/ONC PROGRESS NOTE ---
DATE: 07/02/2019 SUBJECTIVE: Mr. Hobbs is sleeping comfortably in bed. There is no one at bedside. OBJECTIVE: Vital Signs: Temperature 98.9 degrees, heart rate 74, respirations 17, blood pressure 168/73, O2 saturation 93% on room air. CV: S1, S2 heard. Respiratory: Coarse breath sounds. Gastrointestinal: Abdomen is soft, nontender, nondistended. Musculoskeletal: No bony abnormalities. Extremities: No edema. LABORATORY: White blood cells are 15.69, hemoglobin of 14.4, platelets 156. Sodium 139, potassium 3.4, chloride 103, CO2 is 24, BUN is 12, creatinine 0.7, glucose 98. ASSESSMENT AND PLAN: 1. Pneumonia. Continue current management per the primary team. 2. Chronic lymphocytic leukemia. Most recently, stable on Imbruvica. Medication being held at this time. 3. Recent diagnosis of metastatic lung cancer. Not a candidate for treatment. Recommend hospice. 4. Bony metastasis. The patient has been set up for evaluation for palliative radiation therapy as an outpatient. 5. Pain, secondary to bone metastasis. Seems to be well managed currently. Continue current management. Dictated by MIGUEL London for Kristina Adkins MD cc: Kristina Akdins MD I have seen and examined the patient and the above note reflects my history, physical exam, assessment and plan. Kristina BINGHAM
[2019-07-02] MEDS: GAMUNEX C IV SCH (18:04)
[2019-07-02] MEDS: DILUENT IV SCH (18:04)
[2019-07-03] MEDS: MAXIPIME 1 GM in NS 50 ML IV SCH ×4 (00:47→21:38)
[2019-07-03] MEDS: DUONEB (A & A) INH SCH ×4 (03:29→23:11)
--- NOTE | 2019-07-03 03:59 | PROGRESS NOTE ---
DATE: 07/02/2019 SUBJECTIVE: The patient is resting comfortably in bed. No acute events noted overnight. OBJECTIVE: Vital Signs: Temperature 98.1 degrees, blood pressure 141/70, heart rate 93, respirations 19, O2 saturation 96% on room air. General: This is a chronically ill-appearing, elderly male, resting comfortably in bed in no acute distress. Heart: S1, S2 normal. Regular rate and rhythm. Lungs: Clear to auscultation bilaterally. No wheezing. No rales. Abdomen: Positive bowel sounds. Soft, nontender, nondistended. Extremities: No edema ,no cyanosis. Neurologic: The patient is alert, but has periods of confusion. LABS: White blood cell count 15, hemoglobin 14, hematocrit 43, platelets 156,000. Sodium 139, potassium 3.4, chloride 103, CO2 24, BUN 12, creatinine 0.7, magnesium 2.2. Procalcitonin 0.37. ASSESSMENT AND PLAN: 1. Pneumonia. Continue with antibiotic therapy as directed by Dr. Weir. 2. Metastatic lung cancer. Aware. Oncology is following. 3. Chronic lymphocytic leukemia. Aware. 4. Hypokalemia. Will replace the patient's potassium. 5. Constipation. Continue with laxative therapy. 6. Deep vein thrombosis prophylaxis. Continue on Lovenox. 7. Continue with physical therapy. cc: Bettina Barton MD
[2019-07-03] MEDS: ZYVOX PO SCH ×2 (05:31→22:12)
[2019-07-03] MEDS: NS 1,000 ML IV SCH (05:31)
[2019-07-03 07:38] LABS: BASO# 0.03 X1000 (0.0-0.2); BASO% 0.2 % (0.0-0.8); EOS% 1.6 % (0.0-10.0); HEMOGLOBIN 14.1 g/dL (14.0-18.0); IMM GRAN# 0.35 X1000 (0.0-0.04); IMM GRAN% 2.8 % (0.0-0.5); LYMPH# 3.55 X1000 (1.2-3.4); LYMPH% 27.9 % (20.5-51.1); MCHC 33.6 g/dL (33-37); MCV 86.4 FL (81-99); MONO# 0.94 X1000 (0.11-0.59); MONO% 7.4 % (1.7-9.3); MPV 10.8 FL (7.4-10.4); NEUT# 7.64 X1000 (1.4-6.5); NEUT% 60.1 % (42.2-75.2); PLT 148 X1000 (130-400); RBC 4.86 XMIL (4.7-6.1); RDW 15.5 % (11.5-14.5); WBC 12.71 X1000 (4.8-10.8)
--- NOTE | 2019-07-03 07:58 | Diag Imaging Result Doc PS360 ---
EXAM: CHEST-1 VIEW INDICATION: pneumonia TECHNIQUE: One view COMPARISON: 07/01/2019 FINDINGS: Right chest port is in stable position. Interstitial thickening suggesting edema is stable to marginally improved. No new consolidation is identified. Cardiac silhouette is stable. IMPRESSION: Stable to marginal improvement of interstitial edema. Electronically signed by Edis Faith 07/03/2019 7:56 AM
[2019-07-03 08:45] LABS: AGAP 13; ALBUMIN 2.6 g/dL (3.5-5.0); BUN 12 mg/dL (8-22); CALCIUM 7.8 mg/dL (8.8-10.2); CHLORIDE 99 mmol/L (98-107); COSMO 266; CREATININE 0.7 mg/dL (0.7-1.2); GLUCOSE 89 mg/dL (70-104); MAGNESIUM 1.8 mg/dL (1.5-2.7); PHOSPHORUS 2.9 mg/dL (2.7-4.5); POTASSIUM 3.3 mmol/L (3.5-5.1); SODIUM 133 mmol/L (136-145); TCO2 21 mmol/L (25-35)
[2019-07-03] MEDS ORDERED: KLOR-CON PO ONE (08:47)
[2019-07-03] MEDS ORDERED: FLEET MINERAL OIL ENEMA PR ONE (09:12)
--- NOTE | 2019-07-03 10:00 | Diag Imaging Result Doc PS360 ---
EXAM: ABDOMEN FLAT/UPRIGHT INDICATION: constipation TECHNIQUE: 2 views COMPARISON: 07/01/2019 FINDINGS: There is less stool in the colon when compared to the previous study indicating that the constipation has improved or resolved. However, there is still moderate gaseous distention of the ascending and transverse colon that is nonspecific. There is nothing that would necessarily indicate obstruction. There is no evidence of free abdominal gas. IMPRESSION: Less stool in colon as compared to previous study indicating improvement or resolved constipation. However, there is moderate gaseous distention of the ascending and transverse colon that is nonspecific. Electronically signed by Edis Faith 07/03/2019 9:58 AM
[2019-07-03] MEDS: LANOXIN PO SCH (10:51)
[2019-07-03] MEDS: MARINOL PO SCH (10:51)
[2019-07-03] MEDS: MS CONTIN PO SCH (10:51)
[2019-07-03] MEDS: COLACE PO SCH ×2 (10:52→21:38)
[2019-07-03] MEDS: LOVENOX SUBQ SCH (10:52)
[2019-07-03] MEDS: MIRALAX PO SCH ×2 (10:52→21:38)
[2019-07-03] MEDS: DULCOLAX PR SCH (10:52)
[2019-07-03] MEDS: MORPHINE IV PRN (11:13)
--- NOTE | 2019-07-03 12:09 | INFECTIOUS DISEASE PROGRESS NO ---
DATE: 07/03/2019 PRESENT ILLNESS: The patient is being treated for bilateral pneumonia. He also has CLL with an associated immunoglobulin deficiency. MEDICATIONS: This is day 2 of treatment with the combination of cefepime and Zyvox. PHYSICAL EXAMINATION: Vital Signs: Temperature is 98.5 degrees, pulse 79, respirations 18, blood pressure 164/66. General: This is a chronically ill-appearing, elderly male. He is in no acute distress. Head, Eyes, Ears, Nose, and Throat: He can hear my spoken words and see near objects. I did not see any white patches in his mouth. Neck: No pain with movement. Lungs: Clear to auscultation. Cardiovascular: Heart rate is regular. Abdomen: Soft and nontender. Thorax: The patient has a Port-A-Cath present on the right side. The site is not erythematous or draining. Neurologic: The patient is alert. He can move his extremities. There is no tremor. LAB AND X-RAY: Chest x-ray shows improved interstitial edema. Blood cultures are negative. CBC shows a white count of 12,710, hemoglobin 14.1, and platelet count 148,000. Creatinine is 0.7. GFR is greater than 60. Procalcitonin level is 0.37 which translates into that it is likely that the patient has pneumonia. The patient's IgG was very low at 274, IgA was 51. ASSESSMENT AND PLAN: The patient has pneumonia and an immunoglobulin deficiency. My plan is to continue cefepime and Zyvox. Also, the patient got an infusion of IVIG yesterday and he will get another one today. COMORBIDITIES: The patient has metastatic lung cancer. He is a cigarette smoker and he has COPD as well as chronic lymphocytic leukemia, gastroesophageal reflux disease, and an immunoglobulin deficiency. cc: Deon Weir MD
--- NOTE | 2019-07-03 15:35 | PROGRESS NOTE ---
DATE: 07/03/2019 SUBJECTIVE: The patient complains of abdominal pain this morning. He ate some of his breakfast. OBJECTIVE: Vital Signs: Temperature 98.3 degrees, blood pressure 166/78, heart rate 100, respirations 18, O2 saturations 91% on room air. General: This is a chronically ill-appearing elderly male, lying in bed in no acute distress. Heart: S1, S2 normal. Regular rate and rhythm. Lungs: Equal air entry bilaterally. No wheezing. No rales. No rhonchi. Abdomen: Positive bowel sounds. Soft, nontender, nondistended. Extremities: No edema, no cyanosis. Neurologic: The patient is alert, but very hard of hearing. LABS: White blood cell count 12, hemoglobin 14, hematocrit 42 platelets 148. Sodium 133, potassium 3.3, chloride 99, CO2 21. BUN 12, creatinine 0.7, glucose 89. X-RAYS: Chest x-ray shows marginal improvement, no new consolidation. Abdominal x-ray shows improvement of the constipation. ASSESSMENT AND PLAN: 1. Pneumonia. Continue with antibiotic therapy as directed by Dr. Weir. 2. Metastatic lung cancer. Aware. 3. Chronic lymphocytic leukemia. Aware. 4. Constipation. Improved. Continue with laxative therapy. 5. Back pain secondary to metastatic disease. The patient is on MS Contin with intravenous morphine for breakthrough pain. 6. Immunoglobulin deficiency. The patient is currently receiving IVIG therapy. 7. Deep vein thrombosis prophylaxis. Continue on Lovenox. cc: Bettina Barton MD
[2019-07-03] MEDS: GAMUNEX C IV SCH (17:18)
[2019-07-03] MEDS: DILUENT IV SCH (17:18)
[2019-07-03] MEDS: TYLENOL PO PRN (21:38)
[2019-07-04] MEDS: MS CONTIN PO SCH ×3 (02:37→20:38)
[2019-07-04] MEDS: DUONEB (A & A) INH SCH ×4 (04:25→23:00)
[2019-07-04] MEDS: ZYVOX PO SCH ×2 (05:09→16:33)
[2019-07-04] MEDS: MAXIPIME 1 GM in NS 50 ML IV SCH ×4 (05:09→23:37)
[2019-07-04 07:03] LABS: BASO# 0.01 X1000 (0.0-0.2); BASO% 0.1 % (0.0-0.8); EOS# 0.17 X1000 (0.0-0.7); EOS% 1.3 % (0.0-10.0); HEMATOCRIT 43.2 % (42.0-52.0); HEMOGLOBIN 14.4 g/dL (14.0-18.0); IMM GRAN# 0.21 X1000 (0.0-0.04); IMM GRAN% 1.7 % (0.0-0.5); LYMPH# 3.42 X1000 (1.2-3.4); MCH 28.7 PG (27-31); MCHC 33.3 g/dL (33-37); MCV 86.1 FL (81-99); MONO# 0.74 X1000 (0.11-0.59); MONO% 5.8 % (1.7-9.3); MPV 10.7 FL (7.4-10.4); NEUT# 8.11 X1000 (1.4-6.5); NEUT% 64.1 % (42.2-75.2); PLT 144 X1000 (130-400); RBC 5.02 XMIL (4.7-6.1); RDW 15.7 % (11.5-14.5); WBC 12.66 X1000 (4.8-10.8)
[2019-07-04 07:48] LABS: AGAP 14; ALBUMIN 2.5 g/dL (3.5-5.0); BUN 12 mg/dL (8-22); CALCIUM 8.2 mg/dL (8.8-10.2); CHLORIDE 101 mmol/L (98-107); COSMO 269; CREATININE 0.6 mg/dL (0.7-1.2); ESTIMATED GFR > 60; GLUCOSE 87 mg/dL (70-104); PHOSPHORUS 2.8 mg/dL (2.7-4.5); SODIUM 135 mmol/L (136-145); TCO2 20 mmol/L (25-35)
[2019-07-04] MEDS: DULCOLAX PR SCH (08:15)
[2019-07-04] MEDS: LANOXIN PO SCH (08:15)
[2019-07-04] MEDS: COLACE PO SCH (08:15)
[2019-07-04] MEDS: LOVENOX SUBQ SCH (08:16)
[2019-07-04] MEDS: MIRALAX PO SCH (08:16)
[2019-07-04] MEDS: MARINOL PO SCH (09:30)
--- NOTE | 2019-07-04 15:42 | INFECTIOUS DISEASE PROGRESS NO ---
DATE: 07/04/2019 PRESENT ILLNESS: Mr. Hobbs is being treated for bilateral pneumonia as well as an immunoglobulin deficiency. MEDICATIONS: Today is day 3 of cefepime 1 g IV every 8 hours and Zyvox 600 mg by mouth every 12 hours. He has also received IVIG 1 dose yesterday and 1 the day before. PHYSICAL EXAMINATION: Vital Signs: Temperature is 97.9 degrees, pulse rate 72, respiratory rate 19, blood pressure 172/68, O2 saturation 95% on room air. General: This is a chronically ill- appearing, elderly gentleman. He is lying in bed, currently in no acute distress. HEENT: Atraumatic, normocephalic. Oral mucous membranes are pink and moist. Conjunctivae are pink. Neck: Supple. Trachea is midline. Cardiovascular: Heart rate and rhythm are regular. Normal sinus rhythm with a first-degree block on the monitor. Respiratory: Lung sounds are clear to auscultation. Diminished in the mid and bases. Abdomen: Soft, flat, and nontender to palpation. Bowel sounds are active. Neurologic: He is awake, alert, and appropriate. Able to move around in the bed with generalized weakness. Integumentary: Skin is warm and dry with a Port-A-Cath to the right chest. That site is without edema, erythema, or drainage. LABORATORY AND X-RAY: Today, his white count is 12.66. Hemoglobin 14.4, platelet count 144,000. Creatinine 0.6, estimated GFR is greater than 60. Blood cultures have shown no growth after 48 hours. No imaging reports today. ASSESSMENT AND PLAN: Mr. Hobbs is being treated for bilateral pneumonia and has an overwhelming immunoglobulin deficiency due to chronic lymphocytic leukemia. Today is day 3 of his Zyvox and cefepime which we will continue. He has already received IVIG replacement. Today, he is complaining of a frequent cough. For now, we will continue treatment as ordered. These plans have been discussed with and recommended by Dr. Weir. COMORBIDITIES: For Mr. Hobbs include metastatic lung disease, cigarette smoking, COPD, chronic lymphocytic leukemia, gastroesophageal reflux disease, and immunoglobulin deficiency. Dictated by ROBERTO Preciado for Deon Weir MD cc: Deon Weir MD
[2019-07-04] MEDS: TYLENOL PO PRN (18:01)
[2019-07-04] MEDS ORDERED: MIRALAX PO PRN (18:09)
--- NOTE | 2019-07-04 18:25 | PROGRESS NOTE ---
DATE: 07/04/2019 SUBJECTIVE: The patient complains of abdominal pain and back pain. The patient has had 3 liquid stools so far. OBJECTIVE: Vital Signs: Temperature 97.9 degrees, blood pressure 172/68, heart rate 72, respirations 19, and O2 saturation 95% on room air. General: This is a chronically ill-appearing elderly male, lying in bed in no acute distress. Heart: S1, S2 normal. Regular rate and rhythm. Lungs: Equal air entry bilaterally. No wheezing. No rales. Abdomen: Positive bowel sounds. Soft, nontender, nondistended. Extremities: No edema, no cyanosis. Neurologic: The patient is oriented to self. He does have periods of confusion. LABS: White blood cell count 12, hemoglobin 14, hematocrit 43, platelets 144,000. Sodium 135, potassium 4, chloride 101, CO2 of 20, BUN 12, creatinine 0.6, magnesium 1.9, phosphorus 2.8, albumin 2.5. ASSESSMENT AND PLAN: 1. Pneumonia. Continue with antibiotic therapy. 2. Metastatic lung cancer. Aware. 3. Chronic lymphocytic leukemia. Aware. 4. Back pain secondary to metastatic disease. Continue with morphine. 5. Immunoglobulin deficiency. The patient received IVIG therapy. 6. Deep vein thrombosis prophylaxis. Continue on Lovenox. 7. Disposition. Careers Counsellor and Palliative Care are working with the patient and his family regarding a discharge plan. cc: Bettina Barton MD
[2019-07-05] MEDS: DUONEB (A & A) INH SCH ×4 (05:00→22:25)
[2019-07-05] MEDS: MAXIPIME 1 GM in NS 50 ML IV SCH ×3 (05:06→20:46)
[2019-07-05] MEDS: ZYVOX PO SCH ×2 (05:06→18:00)
[2019-07-05 07:57] LABS: BASO# 0.02 X1000 (0.0-0.2); BASO% 0.1 % (0.0-0.8); EOS# 0.12 X1000 (0.0-0.7); EOS% 0.9 % (0.0-10.0); HEMATOCRIT 43.6 % (42.0-52.0); HEMOGLOBIN 14.5 g/dL (14.0-18.0); IMM GRAN# 0.14 X1000 (0.0-0.04); LYMPH# 3.34 X1000 (1.2-3.4); LYMPH% 24.3 % (20.5-51.1); MCH 28.6 PG (27-31); MCHC 33.3 g/dL (33-37); MONO# 0.75 X1000 (0.11-0.59); MONO% 5.5 % (1.7-9.3); MPV 10.5 FL (7.4-10.4); NEUT# 9.37 X1000 (1.4-6.5); NEUT% 68.2 % (42.2-75.2); PLT 145 X1000 (130-400); RBC 5.07 XMIL (4.7-6.1); RDW 15.7 % (11.5-14.5); WBC 13.74 X1000 (4.8-10.8)
[2019-07-05 08:22] LABS: AGAP 12; ALBUMIN 2.6 g/dL (3.5-5.0); BUN 11 mg/dL (8-22); CALCIUM 8.1 mg/dL (8.8-10.2); CHLORIDE 97 mmol/L (98-107); COSMO 267; CREATININE 0.5 mg/dL (0.7-1.2); ESTIMATED GFR > 60; GLUCOSE 92 mg/dL (70-104); PHOSPHORUS 3.1 mg/dL (2.7-4.5); POTASSIUM 3.3 mmol/L (3.5-5.1); SODIUM 134 mmol/L (136-145); TCO2 25 mmol/L (25-35)
[2019-07-05] MEDS ORDERED: KLOR-CON PO ONE (08:28)
[2019-07-05] MEDS: LANOXIN PO SCH (09:50)
[2019-07-05] MEDS: MARINOL PO SCH (09:50)
[2019-07-05] MEDS: LOVENOX SUBQ SCH (09:50)
[2019-07-05] MEDS: MS CONTIN PO SCH ×2 (09:50→20:46)
[2019-07-05] MEDS ORDERED: POTASSIUM CHLORIDE 60 MEQ in NS 500 ML IV ONE (10:04)
[2019-07-05] MEDS ORDERED: ZOFRAN IV PRN (10:04)
--- NOTE | 2019-07-05 17:48 | Diag Imaging Result Doc PS360 ---
EXAM: CT THORAX W/O CONTRAST - 07/05/2019 HISTORY: pneumonia/lung cancer TECHNIQUE: CT thorax without contrast COMPARISON: 06/13/2019 FINDINGS: There are emphysematous changes. There are medium right and small left pleural effusions. There is dependent/compressive atelectasis which is most prominent at the right lower lobe. There are possibly some ill-defined infiltrates overlying the atelectasis, most prominent at the right upper lobe. There is no pneumothorax identified. There is mild mediastinal adenopathy similar to prior. There are probable metastases with pathological compression fractures at T9, T10, and T11 vertebrae. There is a destructive metastasis at the posterior right eighth rib. There is a small low-density lesion in the spleen and spleen. IMPRESSION: Emphysematous changes. Medium right and small left pleural effusions with adjacent atelectasis. Possible ill-defined infiltrates overlying the atelectasis, most prominent at the right upper lobe. Probable metastatic disease at T9, T10, and T11 vertebrae, and at the posterior right eighth rib. If further imaging evaluation is desired, MRI thoracic spine is recommended. This exam was performed using automated exposure control, adjustment of mA or kV according to patient size, and/or use of iterative reconstruction technique. Electronically signed by Maverick Asencio 07/05/2019 5:45 PM
--- NOTE | 2019-07-05 19:16 | PROGRESS NOTE ---
DATE: 07/05/2019 SUBJECTIVE: The patient complains of abdominal pain and shortness of breath. OBJECTIVE: Vital Signs: Temperature 97.5, blood pressure 99/57, heart rate 123, respirations 24. O2 saturation is 94% on room air. General: This is a [id number] elderly male lying in bed in no acute distress. Heart: S1, S2 normal. Tachycardic. Lungs: Coarse breath sounds bilaterally. Abdomen: Positive bowel sounds. Soft, nontender, nondistended. Extremities: No edema, no cyanosis. Neurologic: The patient is oriented to self. He is able to move all 4 extremities. LABS: White blood cell count 13, hemoglobin 14, hematocrit 43, platelets 145, sodium 134, potassium 3.3, BUN 11, creatinine 0.5, glucose 92. ASSESSMENT AND PLAN: 1. Pneumonia. Continue with antibiotic therapy as directed by Dr. Weir. 2. Hypokalemia. We will replace the patient's potassium. 3. Thoracic compression fractures secondary to metastasis. Continue with pain medication. 4. Metastatic lung cancer. Aware. 5. Chronic lymphocytic leukemia. Aware. 6. Constipation. Continue with laxative therapy. 7. Immunoglobulin deficiency, status post IVIG. Aware. 8. Deep vein thrombosis prophylaxis. Continue with Lovenox. cc: Bettina Barton MD
[2019-07-05] MEDS: NS 1,000 ML IV SCH (19:44)
[2019-07-06] MEDS: ZYVOX PO SCH ×2 (04:58→17:12)
[2019-07-06] MEDS: MAXIPIME 1 GM in NS 50 ML IV SCH ×4 (04:58→21:44)
[2019-07-06] MEDS: DUONEB (A & A) INH SCH ×4 (05:23→22:50)
[2019-07-06 07:41] LABS: BASO# 0.03 X1000 (0.0-0.2); BASO% 0.2 % (0.0-0.8); EOS# 0.23 X1000 (0.0-0.7); EOS% 1.7 % (0.0-10.0); HEMATOCRIT 44.3 % (42.0-52.0); HEMOGLOBIN 14.7 g/dL (14.0-18.0); IMM GRAN# 0.14 X1000 (0.0-0.04); IMM GRAN% 1.1 % (0.0-0.5); LYMPH# 3.77 X1000 (1.2-3.4); LYMPH% 28.3 % (20.5-51.1); MCH 29.1 PG (27-31); MCHC 33.2 g/dL (33-37); MCV 87.5 FL (81-99); MONO# 0.86 X1000 (0.11-0.59); MONO% 6.5 % (1.7-9.3); MPV 10.4 FL (7.4-10.4); NEUT# 8.28 X1000 (1.4-6.5); NEUT% 62.2 % (42.2-75.2); PLT 151 X1000 (130-400); RBC 5.06 XMIL (4.7-6.1); RDW 16.2 % (11.5-14.5); WBC 13.31 X1000 (4.8-10.8)
[2019-07-06 08:08] LABS: AGAP 10; BUN 15 mg/dL (8-22); CALCIUM 8.5 mg/dL (8.8-10.2); CHLORIDE 100 mmol/L (98-107); COSMO 271; CREATININE 0.7 mg/dL (0.7-1.2); ESTIMATED GFR > 60; GLUCOSE 102 mg/dL (70-104); POTASSIUM 4.1 mmol/L (3.5-5.1); SODIUM 135 mmol/L (136-145); TCO2 25 mmol/L (25-35)
[2019-07-06] MEDS: MS CONTIN PO SCH ×2 (10:15→20:08)
[2019-07-06] MEDS: LANOXIN PO SCH (10:15)
[2019-07-06] MEDS: MARINOL PO SCH (10:15)
[2019-07-06] MEDS: NS 1,000 ML IV SCH ×2 (10:16→21:44)
[2019-07-06] MEDS: LOVENOX SUBQ SCH (10:16)
--- NOTE | 2019-07-06 17:48 | PROGRESS NOTE ---
DATE: 07/06/2019 SUBJECTIVE: The patient is resting comfortably in bed. No acute events noted overnight. OBJECTIVE: Vital Signs: Temperature 97.5 degrees, blood pressure 152/63, heart rate 95, respirations 19, O2 saturations 93% on room air. General: This is a chronically ill-appearing elderly male sitting up in bed in no acute distress. Heart: S1, S2 normal. Regular rate and rhythm. Lungs: Equal air entry bilaterally. No wheezing. No rales. Abdomen: Positive bowel sounds. Soft, nontender, nondistended. Extremities: No edema. No cyanosis. Neurologic: The patient is alert with periods of confusion. He is very hard of hearing. LABS: White blood cell count 13, hemoglobin 14, hematocrit 44, platelets 151,000. Sodium 135, potassium 4.1, chloride 100, CO2 25, BUN 15, creatinine 0.7, glucose 102. ASSESSMENT AND PLAN: 1. Pneumonia. Continue with antibiotic therapy as directed by Dr. Weir. 2. Thoracic compression fractures secondary to metastasis. Continue with pain control. 3. Metastatic lung cancer. Aware. 4. Chronic lymphocytic leukemia. Aware. 5. Immunoglobulin deficiency, status post IVIG. 6. Constipation. Continue with laxative therapy. 7. Deep vein thrombosis prophylaxis. Continue on Lovenox. 8. Disposition. Will consult with Associate Editor for discharge planning. cc: Bettina Barton MD
[2019-07-07] MEDS: MORPHINE IV PRN ×2 (03:16→03:38)
[2019-07-07] MEDS: DUONEB (A & A) INH SCH ×4 (03:35→22:26)
[2019-07-07] MEDS: MAXIPIME 1 GM in NS 50 ML IV SCH ×3 (04:51→21:45)
[2019-07-07] MEDS: ZYVOX PO SCH ×2 (04:51→18:08)
[2019-07-07 05:19] LABS: ALLEN TEST YES; BE -3.1 mmoll (-3.0-3.0); BLOOD TYPE ARTERIAL; HCO3-(ACT) 22.2 mmoll (20.0-26.0); METHB 1.2 % (0.0-1.5); O2(CT) 18.7 mL/dL (15.0-23.0); PCO2(98.6) 35 mmHg (35-45); PO2(98.6) 54 mmHg (60-100); SAMPLE BLOOD; SAO2 91.4 % (95.0-100.0); THB 15.2 g/dL (11.5-17.4); pH(98.6) 7.39 (7.35-7.45)
[2019-07-07 05:22] LABS: MODALITY VENTIMASK; O2HB 87.8 % (95.0-99.0)
[2019-07-07 05:25] LABS: BASO# 0.03 X1000 (0.0-0.2); BASO% 0.2 % (0.0-0.8); EOS# 0.19 X1000 (0.0-0.7); EOS% 1.2 % (0.0-10.0); HEMATOCRIT 45.6 % (42.0-52.0); HEMOGLOBIN 14.8 g/dL (14.0-18.0); IMM GRAN# 0.14 X1000 (0.0-0.04); IMM GRAN% 0.8 % (0.0-0.5); LYMPH# 3.69 X1000 (1.2-3.4); LYMPH% 22.4 % (20.5-51.1); MCH 28.4 PG (27-31); MCHC 32.5 g/dL (33-37); MCV 87.5 FL (81-99); MONO# 0.78 X1000 (0.11-0.59); MONO% 4.7 % (1.7-9.3); MPV 10.1 FL (7.4-10.4); NEUT# 11.66 X1000 (1.4-6.5); NEUT% 70.7 % (42.2-75.2); PLT 153 X1000 (130-400); RBC 5.21 XMIL (4.7-6.1); RDW 16.1 % (11.5-14.5); WBC 16.49 X1000 (4.8-10.8)
[2019-07-07 05:37] LABS: INR 1.05; PROTIME 13.9 Seconds (11.0-16.0)
[2019-07-07 05:47] LABS: AGAP 13; BUN 15 mg/dL (8-22); CALCIUM 8.3 mg/dL (8.8-10.2); CHLORIDE 100 mmol/L (98-107); COSMO 269; CREATININE 0.6 mg/dL (0.7-1.2); ESTIMATED GFR > 60; GLUCOSE 99 mg/dL (70-104); POTASSIUM 3.9 mmol/L (3.5-5.1); SODIUM 134 mmol/L (136-145); TCO2 21 mmol/L (25-35)
--- NOTE | 2019-07-07 06:20 | Diag Imaging Result Doc PS360 ---
EXAM: CHEST-PORTABLE HISTORY: Dyspnea,Hypoxia TECHNIQUE: Chest single view COMPARISON: 07/03/2019 FINDINGS: Poor inspiratory effort. There are dense right lung infiltrates with smaller left lung infiltrates. These are more prominent than on the prior study. Mild cardiomegaly with pulmonary edema. There is a right pleural effusion. No change in the right-sided subclavian portacatheter. IMPRESSION: Interval worsening Electronically signed by Bruce López 07/07/2019 6:17 AM
[2019-07-07] MEDS ORDERED: LASIX IV ONE (06:23)
[2019-07-07] MEDS ORDERED: LEVAQUIN 500 MG/D5W 500 MG/100 ML IVPB IV SCH (16:15)
--- NOTE | 2019-07-07 18:46 | PROGRESS NOTE ---
DATE: 07/07/2019 SUBJECTIVE: The patient is resting comfortably in bed. He had some shortness of breath this morning and was placed on a Venturi mask. He states that he has no appetite. OBJECTIVE: Vital Signs: Temperature 98.6 degrees, blood pressure 137/68, heart rate 111, respirations 19, O2 saturation 94% on the Venturi mask. Intake 2 L, output 900. General: This is a cachectic elderly male sitting up in bed in no acute distress. Heart: S1, S2 normal. Tachycardic. Lungs: Diminished breath sounds at the bases. No wheezing. Abdomen: Positive bowel sounds. Soft, nontender, nondistended. Extremities: No edema. No cyanosis. Neurologic: The patient is alert, but very hard of hearing. He is able to ambulate. LABS: Sodium 134, potassium 3.9, chloride 100, CO2 21, BUN 15, creatinine 0.6, glucose 99. ProBNP 1454. White blood cell count 16, hemoglobin 14, hematocrit 45, platelets 153,000. Chest x-ray shows interval worsening dense right lung infiltrates with smaller left lung infiltrates. ASSESSMENT AND PLAN: 1. Acute hypoxemic respiratory failure. Multifactorial. The patient has extensive lung cancer plus pneumonia and pulmonary edema. 2. Pneumonia. This appears to have worsened. The patient's antibiotics have been adjusted by Dr. Weir. He has also consulted with a steam presser. 3. Acute pulmonary edema. The patient received a dose of Lasix this morning. We will continue to monitor closely. 4. Metastatic lung cancer. Aware. 5. Thoracic compression fractures secondary to metastasis. Continue with pain control. 6. Chronic lymphocytic leukemia. Aware. 7. Immunoglobulin deficiency status post IVIG. Monitor. 8. Constipation. Continue with scheduled laxative therapy. 9. Deep vein thrombosis prophylaxis. Continue on Lovenox. cc: Bettina Barton MD [facility]
[2019-07-07] MEDS: LOVENOX SUBQ SCH (19:07)
[2019-07-07] MEDS: MARINOL PO SCH (19:08)
[2019-07-07] MEDS: LANOXIN PO SCH (19:08)
--- NOTE | 2019-07-07 19:59 | INFECTIOUS DISEASE PROGRESS NO ---
DATE: 07/07/2019 PRESENT ILLNESS: The patient has a worsening bilateral pneumonia. He also has an immunoglobulin deficiency. MEDICATIONS: This is day 6 of cefepime and Zyvox. The patient has had 2 separate injections of IVIG for his immunoglobulin deficiency. PHYSICAL EXAMINATION: Vital Signs: Temperature is 98 degrees, pulse 107, respirations 18, blood pressure 125/65. General: This is a chronically ill-appearing elderly male. He is in no acute distress. Head, eyes, ears, nose, and throat: He can hear my spoken words and see near objects. He does not have any white patches in his mouth. Neck: No pain with movement. Lungs: Clear to auscultation. Cardiovascular: Heart rate is regular. Abdomen: Soft and nontender. Thorax: Patient has a Port-A-Cath present on the right side. The site is not erythematous or purulent. There is an increased AP diameter of the chest. LAB AND X-RAY STUDIES: Chest x-ray shows increasing right greater than left lung infiltrate. Creatinine of 0.6. GFR greater than 60. Blood cultures are negative. CBC shows a white count of 16,490, hemoglobin 14.8 and platelet count 153,000. ASSESSMENT AND PLAN: The patient appears to be having a worsening pneumonia. I have added Levaquin and put in a consult to Dr. Tracey. The patient has an immunoglobulin deficiency, which has been treated with IVIG. COMORBIDITIES: Patient unfortunately has metastatic lung cancer, he is a cigarette smoker, and he has COPD as well as chronic lymphocytic leukemia, gastroesophageal reflux disease and an immunoglobulin deficiency for which the patient has received IVIG. cc: Deon Weir MD
--- NOTE | 2019-07-07 21:49 | PULMONOLOGY CONSULTATION ---
DATE: 07/07/2019 REQUESTING PHYSICIAN: Dr. Deon Weir. REASON FOR CONSULTATION: Worsening pneumonia. HISTORY OF PRESENT ILLNESS: Mr. 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 The patient is a poor historian. He is oriented to name only. He does not know the location, he does not know the date or the year, he does not know the current president. The patient was admitted to the hospital 06/27/2019 when he presented with back pain, not relieved with Allison, decreased appetite, and hallucinations. His initial chest x-ray revealed a mild abnormality at the right base with a Port- A-Cath in place. His chest x-ray 3 days after admission revealed worsening left lower lobe infiltrate with mild increased vascular edema. A KUB revealed stool throughout the colon consistent with constipation. His oxygen requirements have continued to increase and a CT scan 07/05/2019 revealed pathologic compression fractures in T9, T10 and T11 with bilateral effusions and mild atelectasis versus mild infiltrates in the lung bases. His chest x-ray today has had a marked worsening, and he now has a diffuse infiltrate throughout the right lung. He also has worsening pleural effusions. His hospital course has been complicated by severe immunoglobulin deficiency. His IgG level was [address] Deon Weir. PAST MEDICAL HISTORY/PROBLEM LIST: 1. CLL on oral therapy for several years. 2. Recent diagnosis of stage IV lung cancer. 3. Chronic obstructive pulmonary disease with ongoing tobacco use. 4. History of cardiomyopathy with an ejection fraction of 20% with subsequent normalization of ejection fraction. 5. Hypertension. 6. Dementia. 7. Cataract disease. 8. Hearing impairment. 9. Anxiety/depressive disorder. 10. Status post skin cancer surgery on the scalp. FAMILY HISTORY: Noncontributory to current presentation. REVIEW OF SYSTEMS: Limited given his dementia. PHYSICAL EXAMINATION: General: Reveals a frail, chronically ill-appearing male who is awake and alert. Has difficulty with communication. The patient was laying in a slight Trendelenburg position upon my arrival. The patient reports he likes to keep the bed this way because it decreases the pain in his back. Vital signs: BP 137/68, heart rate 111, respiratory rate 19, oxygen saturation 94% on nonrebreather. HEENT: Pupils are equal and reactive. Oropharynx appears clear. Neck: Supple. Chest: Reveals rhonchi bilaterally with decreased breath sounds in both lung bases. Cardiac Exam: Distant heart sounds. Normal S1, normal S2. Abdomen: Scaphoid and soft. Extremities: Reveal trace edema. LABORATORIES: Arterial blood gas on 50% Ventimask, pH 7.39, pCO2 of 35, pO2 of 54. White blood count 16.49, hemoglobin 14.8, platelet count 153,000. IMPRESSION: A 79-year-old with: 1. Acute hypoxemic respiratory failure. 2. Aspiration pneumonia. 3. Bilateral pleural effusions. 4. Immunoglobulin deficiency. 5. Chronic lymphocytic leukemia. 6. 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 7. Dementia. 8. Protein calorie malnutrition. 9. Ongoing bone pain. DISCUSSION: A 79-year-old with problems outlined above. After following his x-ray sequence, the current radiographic finding is most consistent with an aspiration pneumonia. The patient is sitting in his bed so that his head is lower than his abdomen in an attempt to control his pain. He has likely aspirated during while in this position. The patient's prognosis is extremely poor. It is unlikely that he will have a successful rehabilitation stay. I do not believe he is able to have an aggressive evaluation, such as a bronchoscopy. I do not believe he would benefit from a thoracentesis. I agree completely with Oncology. It is recommended that he be admitted to a hospice facility. Because patient lives alone and does not have someone to care for him in his trailer, it is recommended that he be placed in a long-term facility that has hospice available. RECOMMENDATIONS: 1. Continue antibiotics per Infectious Disease. 2. Anticipate continued decline, hospice recommended. cc: James Tracey MD
[2019-07-08] MEDS: DUONEB (A & A) INH SCH ×4 (03:15→23:46)
[2019-07-08 04:54] LABS: ALLEN TEST YES; BE 3.7 mmoll (-3.0-3.0); BLOOD TYPE ARTERIAL; HCO3-(ACT) 27.6 mmoll (20.0-26.0); METHB 1.1 % (0.0-1.5); O2(CT) 20.6 mL/dL (15.0-23.0); O2HB 92.3 % (95.0-99.0); PCO2(98.6) 39 mmHg (35-45); PO2(98.6) 61 mmHg (60-100); SAMPLE BLOOD; SAO2 95.1 % (95.0-100.0); THB 15.9 g/dL (11.5-17.4); pH(98.6) 7.46 (7.35-7.45)
[2019-07-08 04:55] LABS: MODALITY PRB
[2019-07-08] MEDS: MAXIPIME 1 GM in NS 50 ML IV SCH ×2 (05:58→12:58)
[2019-07-08] MEDS: ZYVOX PO SCH ×2 (05:58→16:23)
--- NOTE | 2019-07-08 07:02 | Diag Imaging Result Doc PS360 ---
CHEST-PORTABLE - 07/08/2019 INDICATION: pneumonia COMPARISON: 07/07/2019 FINDINGS: Stable right chest port. There has been significant decrease in the diffuse atelectasis with volume loss throughout the right lung. However, the right lung is still somewhat small in volume indicating some degree of basilar collapse. There is a small right basilar pleural effusion. Heart size is borderline. Persistent fibrotic appearing opacities in the lung bases bilaterally. IMPRESSION: Significant improvement in aeration of the right lung. There is still some residual collapse here at the lung base. Electronically signed by Freddy Chu 07/08/2019 7:00 AM
[2019-07-08 07:05] LABS: BASO# 0.02 X1000 (0.0-0.2); BASO% 0.1 % (0.0-0.8); EOS# 0.08 X1000 (0.0-0.7); EOS% 0.5 % (0.0-10.0); HEMATOCRIT 47.2 % (42.0-52.0); HEMOGLOBIN 15.7 g/dL (14.0-18.0); IMM GRAN% 0.6 % (0.0-0.5); LYMPH# 4.36 X1000 (1.2-3.4); LYMPH% 24.9 % (20.5-51.1); MCH 28.6 PG (27-31); MCHC 33.3 g/dL (33-37); MCV 86.1 FL (81-99); MONO# 0.99 X1000 (0.11-0.59); MONO% 5.7 % (1.7-9.3); MPV 10.2 FL (7.4-10.4); NEUT# 11.97 X1000 (1.4-6.5); NEUT% 68.2 % (42.2-75.2); PLT 156 X1000 (130-400); RBC 5.48 XMIL (4.7-6.1); RDW 15.8 % (11.5-14.5); WBC 17.52 X1000 (4.8-10.8)
[2019-07-08 07:27] LABS: AGAP 10; BUN 20 mg/dL (8-22); CALCIUM 8.9 mg/dL (8.8-10.2); CHLORIDE 100 mmol/L (98-107); COSMO 282; CREATININE 0.7 mg/dL (0.7-1.2); ESTIMATED GFR > 60; GLUCOSE 96 mg/dL (70-104); POTASSIUM 3.9 mmol/L (3.5-5.1); SODIUM 140 mmol/L (136-145); TCO2 30 mmol/L (25-35)
[2019-07-08 07:49] LABS: BANDS 2 % (0-1); EOS 2 % (1-10); LYMPHS 16 % (21-51); MONO 2 % (1-9); SEGS 78 % (42-75)
[2019-07-08] MEDS: LOVENOX SUBQ SCH (09:13)
[2019-07-08] MEDS: LANOXIN PO SCH (09:13)
[2019-07-08] MEDS: MARINOL PO SCH (09:13)
--- NOTE | 2019-07-08 09:24 | PROGRESS NOTE ---
DATE: 07/08/2019 SUBJECTIVE: Mr. Hobbs was admitted on 06/27/2019 with altered mental status. This is a 78- year-old, history of CLL, was recently diagnosed with lung cancer metastatic disease around 2 weeks ago, presented after having several days of decreased appetite. Daughter was at the bedside on presentation. He also had complaints of a lot of back pain and visual hallucinations, had been seeing people and talking to them, and he does have lesions on the spine per CAT scan, was given [place], not much relief. PAST MEDICAL HISTORY: His past medical history includes dementia, hyperlipidemia, depression. He was suppose to go for radiation treatment on Sunday but is unable to go. At any rate, he was admitted with left lower lobe pneumonia, trying to get some pain control with altered mental status. PREVIOUS SURGICAL HISTORY: He has had left ear surgery, scalp lesion excision, Port-a-Cath placement. PHYSICAL EXAMINATION: Vital signs: Temperature is 98.2, pulse 98, respirations 20, blood pressure 156/85. HEENT: Pupils are equal and round. Lungs: Clear in all lung childress. Cardiovascular exam: Regular rhythm and rate without murmur or S3. Abdomen: Soft. Skin: Warm and dry. ASSESSMENT AND PLAN: 1. Pneumonia. Continue present antibiotics. Dr. Weir is following. 2. Metastatic lung cancer. Aware. 3. Chronic lymphocytic leukemia. 4. Constipation. 5. Back pain secondary to metastasis. The patient is on MS Contin with intravenous morphine for breakthrough pain. 6. Immunoglobulin deficiency receiving IVIG. CURRENT ORDERS: The patient is digoxin 250 mcg p.o. daily, Marinol 2.5 mg a day. He received some immunoglobulin IV, I think that was on the 02 of July. Levaquin 500 mg IV q.24 hours, cefepime 1 g IV q.8 hours, and MiraLAX 17 g p.o. daily. cc: Donny Samson MD
[2019-07-08] MEDS: DOXYCYCLINE 100 MG in NS 250 ML IV SCH (16:22)
--- NOTE | 2019-07-08 19:24 | HEMO/ONC PROGRESS NOTE ---
DATE: 07/08/2019 I contacted the patient's daughter, who is his next of kin, today via telephone. I discussed the patient's overall status. He has recently had a further decline in his respiratory status. He has been evaluated now by multiple doctors, and the consensus seems to be that the patient is appropriate for hospice, and will likely not make much more improvement beyond where he is at currently. I discussed this with the patient's daughter. We discussed his code status and how, at this time, a Full Code would mean a possible intubation of the patient, and also just the whole process of the patient actually undergoing a code. She expressed to me that she wishes for her father to pass naturally and does not want him to have to have chest compressions and possible intubation. We again discussed how he is appropriate for hospice. The patient's daughter reported that she is nervous to have him come home as she does not know if she will be able to take care of him. She is still hopeful to get him in a long-term care facility with hospice being available for him there. She just feels more comfortable if he has around the clock professional monitoring. The patient has expressed that she has other family members that she is talking with. I updated Lesia Lockhart, who is the palliative care nurse, as well as the charge nurse on the floor of the conversation. The daughter is due to come in later today, and I have asked them to have the conversation again with her to confirm with her that she does indeed want to change his code status, and also to confirm the discharge plans. The patient is hard to communicate due to hearing loss, but he also seems much more confused than previously. We will continue to be available and will stop by tomorrow to see the patient as well. Dictated by MIGUEL [place] for Jm López MD cc: Jm López MD
--- NOTE | 2019-07-08 19:36 | INFECTIOUS DISEASE PROGRESS NO ---
DATE: 07/08/2019 PRESENT ILLNESS: Mr. Hobbs is being treated for bilateral pneumonia with leukocytosis. There is also an immunoglobulin deficiency, in a patient with chronic lymphocytic leukemia. The patient has had a noted increase in confusion and delirium in the past 24 hours. MEDICATIONS: He has been receiving Zyvox 600 mg by mouth every 12 hours, cefepime 1 g IV every 8 hours and Levaquin 500 mg IV every 24 hours. The patient has also received supplemental IV IG on this admission. OBJECTIVE: Vital signs: Temperature is 98.5 degrees, pulse rate 105, respiratory rate 18, blood pressure 145/70, O2 saturation 97% on room air.General: This is a chronically ill-appearing, elderly gentleman. He is lying in the bed, anxious, and has just pulled out his Valero catheter. He is talking nonstop at times and confused. It has been reported that there have been hallucinations. HEENT: Atraumatic, normocephalic. Oral mucous membranes are pink and moist. Conjunctivae are pink. Neck is supple. Trachea is midline. Cardiovascular: Heart rate is regular and fast. He is currently on the monitor. Respiratory: Lung sounds are clear to auscultation in the upper lobes, diminished in the mid and bases. Abdomen is soft, flat, and nontender. Bowel sounds are active. Integumentary: Skin is warm and dry with some erythematous areas to his upper extremities. There is a right chest Port-A-Cath in place. The site is without edema, erythema or drainage. Neurologic: He is awake, alert, and confused. He has apparently pulled out several of his Port-A-Cath needle accesses. LABORATORY DATA: Today his white count is 17.52, hemoglobin 15.7, platelet count 156,000. On a partial rebreather, his pH was 7.46, pCO2 was 39, pO2 was 61, HCO3 was 27.6. Creatinine 0.7, estimated GFR greater than 60. Blood cultures have shown no growth after 5 days. DIAGNOSTIC DATA: Chest x-ray this morning showed improvement in right lung aeration with some residual collapse. ASSESSMENT AND PLAN: 1. Mr. Hobbs was started yesterday on Levaquin due to worsening pneumonia. Unfortunately it appears that his mentation has worsened since Levaquin was added. Also, the administration of cefepime can cause some central nervous system problems as well, so we will discontinue both of these. We will continue Zyvox and add ceftazidime 1 g intravenously every 8 hours. We will also replace the Levaquin with doxycycline 100 mg intravenously every 12 hours for the possibility of atypical pneumonia. We have also put in orders for a urine Legionella antigen to be collected. We have spoken to the patient's daughter about hospice. She is considering that as a possibility. Today the chest x-ray is better, but there is a continued increase in his leukocytosis. These plans have been discussed with and recommended by Dr. Weir. 2. Comorbidities for Mr. Hobbs include that he is elderly and confused with metastatic lung cancer, chronic obstructive pulmonary disease, chronic lymphocytic leukemia, gastroesophageal reflux disease, and an immunoglobulin deficiency. Dictated by ROBERTO Preciado for Deon Weir MD cc: Deon Weir MD MTDD
[2019-07-08] MEDS: TAZIDIME 1 GM in NS 50 ML IV SCH (21:59)
--- NOTE | 2019-07-08 22:24 | PULMONOLOGY PROGRESS NOTE ---
DATE: 07/08/2019 SUBJECTIVE: The patient is awake and alert. He is confused and does not know where he is. When I arrived, he was sitting crosswise in the bed with his legs hanging between the 2 side rails. When I questioned what he was doing, he indicated that he was not hurting anybody. He is without specific complaints. OBJECTIVE: The patient has been afebrile for the last 24 hours. Blood pressure 139/68, heart rate 102, respiratory rate 16, oxygen saturation 94% on nasal cannula. HEENT: Pupils are equal and reactive. Oropharynx appears clear. Neck is supple. Chest reveals rhonchi bilaterally. Cardiac exam: S1, S2. Abdomen is soft. Extremities without edema. DIAGNOSTIC DATA: Chest x-ray reveals significant improvement in the right lung, with improved aeration with some residual atelectasis/pneumonia at the right lung base. Sodium 140, potassium 3.9, chloride 100, bicarbonate 30, BUN 20, creatinine 0.7. White blood count 17.52, hemoglobin 15.7, platelet count 156,000. Arterial blood gas reveals a pH 7.46, pCO2 of 39, pO2 of 61. IMPRESSION: A 79-year-old with: 1. Acute aspiration pneumonia. He has had some radiographic improvement with coughing and clearing his secretions. 2. Acute hypoxemic respiratory failure. 3. Small bilateral effusions. 4. Severe immunoglobulin deficiency. 5. Chronic lymphocytic leukemia. 6. 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 7. Protein-calorie malnutrition. 8. Significant dementia. DISCUSSION: A 79-year-old with problems outlined above. He has had some radiographic improvement, and he likely has coughed and cleared some of his aspiration event. His oxygen requirements have marginally improved throughout the day. He is at risk for recurrent aspiration. His prognosis is extremely poor. Family have not been at the bedside when I have evaluated the patient. The daughter appears to be his primary contact, and end-of-life discussions have been held by both Palliative Care as well as Oncology. His code status has been changed to allow him to have a natural , which is clearly appropriate for this patient, and the work of both teams appreciated. Current plan is to transfer for a rehab stay and pursue long-term care, preferably with a hospice available if possible. PLAN: 1. Continue antibiotics per Infectious Disease. An oral antibiotic would be of benefit. 2. End-of-life discussions as per above. 3. Long-term care destination. cc: James Tracey MD
[2019-07-09] MEDS: DUONEB (A & A) INH SCH ×4 (03:30→21:39)
[2019-07-09] MEDS: TAZIDIME 1 GM in NS 50 ML IV SCH ×3 (03:50→20:27)
[2019-07-09] MEDS: DOXYCYCLINE 100 MG in NS 250 ML IV SCH ×2 (04:41→17:41)
[2019-07-09] MEDS: ZYVOX PO SCH ×2 (07:12→17:41)
--- NOTE | 2019-07-09 07:34 | Diag Imaging Result Doc PS360 ---
EXAM: CHEST-PORTABLE INDICATION: pneumonia TECHNIQUE: One view COMPARISON: 07/08/2019 FINDINGS: The right chest port is in stable position. There has been continued improvement of the atelectasis at the right lung base. There has been improvement of the pleural effusions. Interstitial thickening likely representing a combination of fibrosis and interstitial edema is approximately stable. Cardiac silhouette is unchanged. IMPRESSION: Better aeration of the right lung base and decrease of pleural effusions as described. Electronically signed by Edis Faith 07/09/2019 7:31 AM
[2019-07-09 07:56] LABS: BASO# 0.01 X1000 (0.0-0.2); BASO% 0.1 % (0.0-0.8); EOS# 0.06 X1000 (0.0-0.7); EOS% 0.4 % (0.0-10.0); HEMOGLOBIN 14.2 g/dL (14.0-18.0); IMM GRAN# 0.13 X1000 (0.0-0.04); IMM GRAN% 0.8 % (0.0-0.5); LYMPH# 4.76 X1000 (1.2-3.4); LYMPH% 30.3 % (20.5-51.1); MCH 28.4 PG (27-31); MONO# 0.99 X1000 (0.11-0.59); MONO% 6.3 % (1.7-9.3); MPV 10.1 FL (7.4-10.4); NEUT# 9.75 X1000 (1.4-6.5); NEUT% 62.1 % (42.2-75.2); PLT 135 X1000 (130-400); RDW 15.6 % (11.5-14.5)
[2019-07-09] MEDS: LOVENOX SUBQ SCH (09:52)
[2019-07-09] MEDS: LANOXIN PO SCH (09:52)
[2019-07-09] MEDS: MARINOL PO SCH (09:52)
--- NOTE | 2019-07-09 10:12 | PROGRESS NOTE ---
DATE: 07/09/2019 SUBJECTIVE: Mr. Hobbs was awake. I think he is oriented to person. I think he, at times, knows he is in the hospital. He does not appear to be in any distress, breathing comfortably. OBJECTIVE: Temperature 97.6 degrees, pulse 93, respirations 20, blood pressure 123/66. Pupils are equal and round. Lungs are clear in all lung childress. Cardiovascular Examination: Regular rhythm and rate without murmur or S3. Abdomen is soft. Skin is warm and dry. Laboratory Data: White count yesterday 15,700, hematocrit is 43, platelet count is 135,000. ASSESSMENT AND PLAN: 1. Chest x-ray shows better aeration in the right lung base, decreased pleural effusions. He had acute aspiration pneumonia, appears to be improving. 2. Hypoxemic respiratory failure. 3. Small bilateral effusions. 4. Severe immunoglobulin deficiency. 5. Chronic lymphocytic leukemia. 6. Stage IV lung cancer with metastatic disease to the spine. 7. Protein calorie malnutrition. 8. Significant dementia. 9. I think the plan is to try and go to rehab and they are looking. I think they would like to have with hospice care in the snf. cc: Donny Samson MD MTDD
--- NOTE | 2019-07-09 21:27 | INFECTIOUS DISEASE PROGRESS NO ---
DATE: 07/09/2019 PRESENT ILLNESS: Mr. Hobbs has bilateral pneumonia with a leukocytosis, both of which are improving. He also has underlying chronic lymphocytic leukemia with an immunoglobulin deficiency. MEDICATIONS: He is receiving Zyvox 600 mg by mouth every 12 hours, ceftazidime 1 g IV every 8 hours, and doxycycline 100 mg IV every 12 hours. He has also had supplemental IVIG on this admission. PHYSICAL EXAMINATION: Vital Signs: Temperature is 98.5 degrees, pulse rate 102, respiratory rate 15, blood pressure 130/77, O2 saturation is 95% on room air. General: This is a chronically ill- appearing, elderly gentleman. He is lying in the bed, calm, and appears to be less confused and there is no combativeness at this time. HEENT: Atraumatic, normocephalic. Oral mucous membranes are pink and dry. Conjunctivae are pink. Neck: Supple. Trachea is midline. Respiratory: Lung sounds are bilaterally clear to auscultation in the upper lobes. Diminished in the bases. Cardiovascular: Heart rate is regular and fast. Abdomen: Soft, flat, nontender. Bowel sounds are active. Integumentary: He has a Port-A-Cath in place to the right chest. That site is without edema, erythema, or drainage. Neurologic: He is awake, alert, and following directions appropriately. He is very hard of hearing. Able to move all extremities in the bed independently. LABORATORY AND X-RAY: Today, his white count is 15.7, hemoglobin 14.2, platelet count 135,000. No creatinine today, but that has been running normal since admission. Chest x- ray today shows better aeration of the right lung base and decrease of pleural effusion. ASSESSMENT AND PLAN: Mr. Hobbs is being treated for pneumonia and had a change in his antibiotics yesterday due to the presence of increased delirium. Today, he seems to be less confused and is calm and not combative; however, his family does say that he has been hallucinating at times. We have had him on Zyvox and ceftazidime for the pneumonia, and added doxycycline for the possibility of an atypical pneumonia. At this point, his white blood cell count is slowly declining. We have ordered a urine Legionella antigen, but that has yet to be collected. At this point, we will continue the current regimen as ordered. The patient has been made a Do Not Resuscitate level 1 and there is a possibility of rehabilitation and/or hospice at the appropriate time. These plans have been discussed with and recommended by Dr. Weir. COMORBIDITIES: For Mr. Hobbs, include that he is elderly and confused, with metastatic lung cancer, chronic obstructive pulmonary disease, chronic lymphocytic leukemia with immunoglobulin deficiency, and gastroesophageal reflux disease. Dictated by ROBERTO Preciado for Deon Weir MD cc: Deon Weir MD [facility]
[2019-07-10] MEDS: DUONEB (A & A) INH SCH ×3 (03:07→16:23)
[2019-07-10] MEDS: DOXYCYCLINE 100 MG in NS 250 ML IV SCH (03:30)
[2019-07-10] MEDS: TAZIDIME 1 GM in NS 50 ML IV SCH (04:00)
[2019-07-10] MEDS: ZYVOX PO SCH (05:05)
[2019-07-10] MEDS ORDERED: LASIX IV ONE (06:00)
--- NOTE | 2019-07-10 06:18 | PULMONOLOGY PROGRESS NOTE ---
DATE: 07/09/2019 SUBJECTIVE: The patient is resting quietly in his bed. He is disoriented. He voices no complaints. OBJECTIVE: Vital Signs: The patient has been afebrile for the last 24 hours. Blood pressure 130/77, heart rate 102, respiratory rate 15, and oxygen saturation 95% on Venturi mask. HEENT: Pupils are equal and reactive. Oropharynx appears clear. Neck: Supple. Lungs: Chest reveals rhonchi bilaterally. Cardiac: Distant heart sounds. Normal S1, normal S2. Abdomen: Soft. Extremities: Without edema. LABORATORIES: Chest x-ray reveals decreasing effusions with improved aeration at the right base. IMPRESSION: A 79-year-old with: 1. Acute hypoxemic respiratory failure. 2. Bilateral effusions. 3. Acute hypoxemic respiratory failure. 4. Severe immunoglobulin deficiency. 5. Chronic lymphocytic leukemia. 6. 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 7. Dementia. PLAN: 1. Continue antibiotics per Infectious Disease. 2. Continue oxygen. 3. Anticipate need for long-term care. cc: James Tracey MD
[2019-07-10] MEDS: MARINOL PO SCH (08:49)
[2019-07-10] MEDS: LOVENOX SUBQ SCH (08:50)
[2019-07-10] MEDS: LANOXIN PO SCH (08:50)
[2019-07-10 12:45] VITALS: BP 105/50
--- NOTE | 2019-07-10 14:21 | DISCHARGE SUMMARY ---
ADMISSION DATE: 06/27/2019 DISCHARGE DATE: 07/10/2019 HISTORY OF PRESENT ILLNESS: This patient is followed by Dr. Pari Wilson. This is a 79-year-old with a history of CLL, recently diagnosed with lung cancer with metastasis around 2 weeks before presentation here to the hospital. He presents after having several days of decreased appetite, per daughter. Also with complaints of a lot of back pain, hallucinations. He had been seen people and talking to them. He does have lesions on the spine per CAT scan. He was given some [place] without much relief. He is supposed to get the plans for radiation on his back. HOSPITAL COURSE: He was admitted with left lower lobe pneumonia. The patient was put on antibiotics and supplementary O2. He remained fairly lethargic but yet, at times, very uncomfortable. Hematology, Dr. Kristina Adkins, followed along for his CLL. He has recently been put on Imbruvica, and is well managed. The patient has compression fractures related to lytic lesions from the lung cancer and is setting up for palliative radiation treatment. He has newly diagnosis metastatic lung disease, had not recommended treatment. He is not a candidate for chemotherapy or radiation for his lung cancer but pain control of the bony metastasis, setting up for radiation therapy. He showed minimal improvement, very weak. Abdominal x- ray on 07/01/2019 showed constipation. Pneumonia was treated. Clinically, it has improved. [place] he would need to stay on antibiotics for a bit. Infectious disease was involved, Dr. Weir. He has underlying CLL and associated immunoglobulin deficiency. He was put on Zyvox 600 mg by mouth every 12 hours and cefepime 1 g IV q.8 hours. Family wanted him to pursue going to rehab therapy. Dr. Tracey is following from pulmonary.. 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 He has stage IV lung cancer with metastasis. Showed some improvement. Hoping to get him to rehab at [facility] on 07/10/2019. DISCHARGE MEDICATIONS: He will be on Omnicef 300 mg b.i.d., Lanoxin 250 mcg p.o. daily, doxycycline 50 mg b.i.d., Marinol 2.5 mg daily, MiraLAX 17 g p.o. daily. DISCHARGE INSTRUCTIONS: Encourage rehab. Follow up with his primary care physician, follow up with Dr. Adkins. cc: Donny Samson MD [facility]
[2019-07-10] MEDS: MORPHINE IV PRN (15:05)
--- NOTE | 2019-07-10 19:44 | INFECTIOUS DISEASE PROGRESS NO ---
DATE: 07/10/2019 PRESENT ILLNESS: The patient has bilateral pneumonia and leukocytosis. The patient also has chronic lymphocytic leukemia with an associated immunoglobulin deficiency. MEDICATIONS: Currently, the patient is getting Zyvox, ceftazidime, and doxycycline. He has already received IVIG. PHYSICAL EXAMINATION: Vital Signs: Temperature is 98 degrees, pulse 74, respirations 18, blood pressure is 105/50. General: This is a chronically ill-appearing, elderly male. He is in no acute distress. Head, eyes, ears, nose, and throat: He appeared to be able to hear my spoken words and see objects. I did not notice any white patches in his mouth. Neck: No stiffness. Thorax: The patient has a Port-A-Cath on the right side. The site is not swollen or red. Lungs: Clear to auscultation. Cardiovascular: Heart rate is regular. Abdomen: Soft and not tender. Neurologic: The patient is awake. He can move his extremities. He has decreased hearing, however. LABORATORY AND X-RAY: There is no new radiographic study. CBC shows a white count of 15,700, hemoglobin 14.2, and platelet count 135,000. Creatinine is 0.7, GFR is greater than 60. ASSESSMENT AND PLAN: The patient has pneumonia. He will be discharged to his alf today. I have changed his antibiotics to the following: Omnicef 300 mg p.o. every 12 hours, and doxycycline 50 mg p.o. every 12 hours to be taken, and both antibiotics will be discontinued on July 16 at 2300. COMORBIDITIES: The patient is elderly. He has metastatic lung cancer, chronic obstructive pulmonary disease, chronic lymphocytic leukemia, an immunoglobulin deficiency, and gastroesophageal reflux disease. cc: Deon Weir MD
[2019-07-10] MEDS ORDERED: OMNICEF PO SCH (21:00)
[2019-07-10] MEDS ORDERED: DOXYCYCLINE PO SCH (21:00)
== END 2019-07-10 17:37 | DRG 193 ==
LOC: ED 17:13 → 3N 23:46 → SUATTDRO 23:46
PROVIDERS: ATTEND Emergency Medicine